=== PATIENT | male | born 1960 | race Caucasian/White ===

== ENCOUNTER 2017-10-30 10:34 | Inpatient (IN) | payer BC, SELFPAY ==
[2017-10-30] MEDS ORDERED: METOPROLOL TARTRATE 5 MG/5 ML INJ IV ONE (10:50)
[2017-10-30 10:57] LABS: Arterial Blood Carboxyhemoglob 0.1 % (0-1.5); Blood Gas Oxyhemoglobin 96.6 % (94-97)
--- NOTE | 2017-10-30 10:58 | ER ---
Nurse's Notes [facility] Name: Dionisio Lawson Age: 57 yrs Sex: Male : 1960 Arrival Date: 10/30/2017 Time: 10:38 Bed 2 Private MD: None, None Diagnosis: Subsequent ST elevation (STEMI) myocardial infarction of inferior wall;Altered mental status, unspecified;Respiratory failure, unspecified;Obesity, unspecified;Hypotension Presentation: 10/30 10:30 Presenting complaint: EMS states: pt found laying on floor at residence by family, sg police arrival toned for pt unresponsive with no pulse, OPA inserted, administered CPR initiated. pt family noted to be poor historians for pt, EMS report initial EKG rhythm of V-Fib and AED mode and a shock was administered, pt EKG showed 2 3 AVF STEMI, HR of 133 bpm, pt removed OPA, resp even labored but tolerated 02 via NC. Transition of care: patient was not received from another setting of care. Onset of symptoms was October 30, 2017. Initial Sepsis Screen: Does the patient meet any 2 criteria? No. Patient's initial sepsis screen is negative. Does the patient have a suspected source of infection? No. Patient's initial sepsis screen is negative. Care prior to arrival: Oral airway placed, CPR via thumper CLINICAL NEUROPSYCHOLOGIST by EMS IV initiated. 18 GA, in the right antecubital area. Activity prior to arrival: unresponsive. 10:30 Care prior to arrival: IV initiated. 20 GA, in the left antecubital area, Glucose sg check: 207 Oxygen administered. oral airway. 10:30 Risk Assessment: Do you want to hurt yourself or someone else? Other: unable to sg complete d/t pt status. 10:30 Note EMS reports 10-12 rounds of 30:1 CPR administered, ACLS performed by [facility], abrasion noted to sternum that is red. Care prior to arrival: Medication(s) given: Narcan 2 mg IVP at 1016, EPI IVP 1 dose at 1020. 10:30 Compressions began prior to arrival. sg 10:47 Method Of Arrival: EMS: [facility] sg 10:47 Acuity: BOLA 1 sg Triage Assessment: 10:32 General: Appears distressed, unkempt, well nourished, Behavior is unresponsive. Pain: sg Unable to use pain scale. Patient is unresponsive. Historical: - Allergies: 11:01 No Known Allergies; sg - Home Meds: 11: None [Active]; sg - PMHx: 11: Hypertension; Migraines; sg - PSHx: 11: None; sg - Immunization history:: Adult Immunizations unknown. - Social history:: Smoking status: unknown. - Family history:: not pertinent. - Ebola Screening: : Unable to complete screening because patient is unresponsive. Screenin:29 Abuse screen: Denies threats or abuse. Nutritional screening: No deficits noted. tw2 Tuberculosis screening: No symptoms or risk factors identified. Fall Risk None identified. Assessment: 10:30 CPR assessment: performed CLINICAL NEUROPSYCHOLOGIST with the use of the [facility] device per [facility]. sg Cardiac rhythm is Sinus Tach upon arrival to exam room 2. Cardiovascular: Pulses are palpable in right radial artery, left radial artery, left carotid pulse and right carotid pulse. 11:00 General: Appears in no apparent distress. Behavior is unresponsive. pt intubated. Pain: sv Unable to use pain scale. FLACC scale score is 0 out of 10. Neuro: Level of Consciousness is unresponsive, Oriented to none. Respiratory: Respiratory effort is even, unlabored, Respiratory pattern is regular, symmetrical. GI: Abdomen is round. : Doran in place to gravity drainage Urine is clear. Derm: Skin is normal. 11:25 Reassessment: Patient appears in no apparent distress at this time. No changes from sv previously documented assessment. Pt remains intubated. Vital Signs: 10:43 BP 140 / 81; Pulse 133; Resp 18 A; Temp 96.9(C); Pulse Ox 100% on R/A; Weight 113.4 kg; sg 10:50 BP 116 / 85; Pulse 101 MON; Resp 16 A; Pulse Ox 99% on 100% FiO2 ETT vent; sv 11:10 BP 79 / 64; Pulse 114; Resp 20; Pulse Ox 99% on ETT ambu; sv 11:19 BP 79 / 55; Pulse 101; Resp 19 A; Temp 97.8; Pulse Ox 99% on 100% FiO2 ETT vent; sg 11:25 sg 11:10 Dr Baumann informed. sv 11:25 pt non violent restraint ordered to protect airway, pt transported via stretcher with ammy Montalvo RN laborer powerhouse personell for procedure ED Course: 10:30 environmental monitoring technician on. Pulse ox on. NIBP on. sv 10:30 Initial lab(s) drawn, by ED staff, sent to lab. EKG done, by x ray service technician. reviewed by ammy Baumann MD. 10:30 Patient has correct armband on for positive identification. Placed in gown. Bed in low sg position. 10:30 Maintain EMS IV. Dressing intact. Site clean \T\ dry. Gauge \T\ site: 18G to the left and sv right AC. 10:38 Patient arrived in ED. bd 10:42 Assisted provider with intubation using 7.5 mm ETT via oral route. ET tube secured at sg 23cm at the teeth. Intubated by Alex Baumann MD Placement verified by CO2 detector w/ + color change, auscultating bilateral breath sounds, Patient tolerated well. Doran cath inserted, using sterile technique, 16 Fr., by sales architect, balloon inflated, to gravity drainage, urine specimen collected. Patient tolerated well. Maintain EMS IV. Dressing intact. Site clean \T\ dry. IV is patent, is intact. 10:45 Alex Baumann MD is Attending Physician. isabel 10:47 None, None is Private Physician. sg 10:50 Patient has correct armband on for positive identification. Bed in low position. sv 10:57 Triage completed. sg 10:58 Brigida Connell MD is Hospitalizing Provider. isabel 10:58 NGT: inserted 14 Fr. other oral route verified placement of air over stomach, verified sv return of gastric contents, Patient tolerated well. 11:01 Arm band placed on. sg 11:13 CT completed. Patient tolerated procedure well. Patient moved back from CT. vr 11:15 EKG done, by x ray service technician. reviewed by Alex Baumann MD Repeat EKG. at1 11:19 X-ray completed. Portable x-ray completed in exam room. Patient tolerated procedure mh1 well. 11:27 to laborer powerhouse. sg 11:28 Patient admitted, IV remains in place. intact. sg 11:44 Jenniffer Marina RN is Primary Nurse. sv Restraints: 11:25 Non-Violent Restraint: Order obtained. Initiated on October 30, 2017 at 11:25. sg Administered Medications: 10:38 Drug: Versed 6 mg {Note: medication administered by Jenniffer Marina RN.} Route: IVP; sg Site: right antecubital; 10:40 Drug: NS 0.9% 1000 ml {Note: EMS IV bolus infused.} Route: IV; Rate: 1 bolus; Site: sg right antecubital; 10:40 Drug: Succinylcholine 120 mg {Note: medication administered by Jenniffer Marina RN.} sg Route: IVP; Site: right antecubital; 10:41 Drug: Etomidate 20 mg Route: IVP; Site: right antecubital; sg 10:48 Drug: Lopressor 2.5 mg {Note: medication administered by Jenniffer Marina RN.} Route: sg IVP; Site: right antecubital; 10:58 Drug: Versed 4 mg Route: IVP; Site: left antecubital; sg 10:58 Drug: Rocuronium 60 mg Route: IVP; Site: left antecubital; sg 11:00 Drug: NS 0.9% 1000 ml Route: IV; Rate: 1 bolus; Site: right antecubital; sg 11:16 Drug: Heparin (AL-Bolus No thrombolytic) - HEParin 60 units/kg {Co-Signature: tw2 (Traci Rivera RN).} Route: IVP; Site: left antecubital; 11:17 Drug: Heparin (AL Drip) 12 units/kg/hr - (HEParin 77451 units, D5W 500 ml) sg {Co-Signature: sv (Jenniffer Marina RN).} Route: IV; Rate: calculated rate; Site: left antecubital; 11:24 Not Given (Duplicate Order): Propofol 5 mcg/kg/min IV at calculated rate continuous; isabel titrate per protocol (titrate by 5-10mcg/kg/min every 10 min to max rate of 50 mcg/kg/min) 11:36 Not Given (Other Intervention Used): Lopressor 5 mg IVP once; Hold for SBP <100 or HR sg <60. 11:37 Not Given (pt transferred to skilled labor ): NS 0.9% 1000 ml IV at 1 bolus Per protocol; sg 1000 mL bolus 11:37 Not Given (Other Intervention Used): Aspirin Suppository 300 mg HI once sg Outcome: 10:58 Decision to Hospitalize by Provider. isabel 11:27 Outcome see nurses note tw2 11:27 Admitted to [facility] accompanied by nurse, on monitor, with chart, Report called to Carmen 11:27 Condition: stable 11:38 Patient left the ED. tw2 Signatures: Corazon Wang, Jenniffer, RN RN Abhishek Field RN RN Alex Baumann MD MD cha Harvey, Barb 1 Mihir, Fadia Saxena, imaging account manager EKG Tat1 Traci Rivera RN RN tw2 Jenniffer Marina RN Traci Rivera RN tw2 Corrections: (The following items were deleted from the chart) 10:47 Presenting complaint: EMS states: pt found laying on floor at residence by sg family, police arrival toned for pt unresponsive with no pulse, OPA inserted, administered CPR initiated. pt family noted to be poor historians for pt, EMS report initial EKG rhythm of V-Fib and AED mode and a shock was administered, pt EKG showed 2 3 AVF STEMI, HR of 133 bpm, pt removed OPA, resp even labored but tolerated 02 via NC 10:47 Transition of care: patient was not received from another setting of care. [facility] 10:47 Onset of symptoms was October 30, 2017 [facility] 10:47 Risk Assessment: Do you want to hurt yourself or someone else? Patient reports no sg desire to harm self or others. 10:47 Initial Sepsis Screen: Does the patient meet any 2 criteria? No. Patient's sg initial sepsis screen is negative. Does the patient have a suspected source of infection? No. Patient's initial sepsis screen is negative. 10:47 Care prior to arrival: Oral airway placed, CPR via thumper CLINICAL NEUROPSYCHOLOGIST by EMS IV sg initiated. 18 GA, in the right antecubital area, sg 10:47 Care prior to arrival: IV initiated. 20 GA, in the left antecubital area, Glucose sg check: 207 Oxygen administered. oral airway 10:47 Activity prior to arrival: unresponsive, [facility] 11:15 11:02 NS 0.9% 1000 ml IV at 1 bolus in right antecubital sg 11:22 10:40 Succinylcholine 120 mg IVP in right antecubital sg sg 11:49 11:00 BP 116 / 85; Pulse 101bpm; MonitorResp 16bpm; Assisted; Pulse Ox 99% FiO2 100% sv vent; sg 11:56 11:55 Patient left the ED. sv sv
--- NOTE | 2017-10-30 10:58 | EDPHYS ---
Physician Documentation [facility] Name: Dionisio Lawson Age: 57 yrs Sex: Male : 1960 Arrival Date: 10/30/2017 Time: 10:38 Bed 2 Private MD: None, None ED Physician Alex Baumann HPI: 10/30 10:48 This 57 yrs old Male presents to ER via Unassigned with complaints of isabel Unresponsive. 10:48 The patient or guardian reports chest pain that is located primarily in the anterior isabel aspect of right upper chest, anterior aspect of left upper chest, right lateral anterior chest, left lateral anterior chest, right nipple, right breast and left breast. Onset: just prior to arrival. The patient presents with unresponsive. Onset: The symptoms/episode began/occurred just prior to arrival, this morning. Possible causes: drug use, seizure, ami. Seizure Hx: the patient has no previous seizure history, it is unknown whether or not the patient has a previous seizure history. Historical: - Allergies: 11:01 No Known Allergies; sg - Home Meds: 11:01 None [Active]; sg - PMHx: 11:01 Hypertension; Migraines; sg - PSHx: 11:01 None; sg - Immunization history:: Adult Immunizations unknown. - Social history:: Smoking status: unknown. - Family history:: not pertinent. - Ebola Screening: : Unable to complete screening because patient is unresponsive. ROS: 10:48 Unable to obtain ROS due to obtunded state, patient distress. isabel Exam: 10:48 Neck: Trachea midline, no thyromegaly or masses palpated, and no cervical isabel lymphadenopathy. Supple, full range of motion without nuchal rigidity, or vertebral point tenderness. No Meningismus. Back: No spinal tenderness. No costovertebral tenderness. Full range of motion. MS/ Extremity: Pulses equal, no cyanosis. Neurovascular intact. Full, normal range of motion. 10:48 Eyes: Periorbital structures: appear normal, Pupils: equal, round, and reactive to light and accomodation, Extraocular movements: intact throughout, Conjunctiva: normal, Corneas: are normal, Sclera: no appreciated abnormality, Lids and lashes: appear normal, no acute changes. 10:48 Chest/axilla: Inspection: abrasion, ecchymosis, that is mild, of the mid-sternal area 10:48 Cardiovascular: Rate: tachycardic, Rhythm: regular, Pulses: Pulses are 4+ in bilateral radial, brachial, femoral, popliteal, posterior tibial and and dorsalis pedis arteries.. Heart sounds: normal, Edema: is not appreciated. 10:48 Respiratory: mild respiratory distress is noted. 10:48 Abdomen/GI: Inspection: distension, Bowel sounds: diminished, Palpation: nontender, Liver: no appreciated palpable abnormalities, Hernia: not appreciated. Vital Signs: 10:43 BP 140 / 81; Pulse 133; Resp 18 A; Temp 96.9(C); Pulse Ox 100% on R/A; Weight 113.4 kg; sg 10:50 BP 116 / 85; Pulse 101 MON; Resp 16 A; Pulse Ox 99% on 100% FiO2 ETT vent; sv 11:10 BP 79 / 64; Pulse 114; Resp 20; Pulse Ox 99% on ETT ambu; sv 11:19 BP 79 / 55; Pulse 101; Resp 19 A; Temp 97.8; Pulse Ox 99% on 100% FiO2 ETT vent; sg 11:25 sg 11:10 Dr Baumann informed. sv 11:25 pt non violent restraint ordered to protect airway, pt transported via stretcher with ammy Montalvo RN excavation laborer personell for procedure Procedures: 11:25 Intubation: Ventilated with 100% NRB prior to procedure. Intubated orally using # 3 isabel Syeda blade with 7.5 mm ETT. was successful on first attempt. Ventilated with Ambu bag. Cricoid pressure applied during procedure. Placement verified by CXR, CO2 detector with (+) color change, auscultating bilateral breath sounds, O2 saturation after procedure was 100 %. Patient tolerated well. MDM: 10:45 Patient medically screened. [facility] 10:51 Data reviewed: vital signs, nurses notes, lab test result(s), EKG, radiologic studies, [facility] CT scan, plain films. 10/30 10:47 Order name: Basic Metabolic Panel [facility] 10/30 10:47 Order name: CBC with Diff; Complete Time: 11:24 [facility] 10/30 10:47 Order name: Ckmb [facility] 10/30 10:47 Order name: CPK [facility] 10/30 10:47 Order name: LFT's [facility] 10/30 10:47 Order name: Magnesium [facility] 10/30 10:47 Order name: NT PRO-BNP [facility] 10/30 10:47 Order name: PT-INR; Complete Time: 11:24 [facility] 10/30 10:47 Order name: Ptt, Activated; Complete Time: 11:24 [facility] 10/30 10:47 Order name: Troponin (emerg Dept Use Only) [facility] 10/30 10:47 Order name: Lipase [facility] 10/30 10:47 Order name: Acetaminophen [facility] 10/30 10:47 Order name: ETOH Level; Complete Time: 11:24 [facility] 10/30 10:47 Order name: Salicylate [facility] 10/30 10:47 Order name: XRAY Chest (1 view) [facility] 10/30 10:47 Order name: Urine Drug Screen [facility] 10/30 10:47 Order name: CT Head Brain wo Cont [facility] 10/30 10:47 Order name: ABG [facility] 10/30 11:29 Order name: RAD EDTN 10/30 11:31 Order name: CT [facility] 10/30 10:47 Order name: EKG; Complete Time: 10:48 [facility] 10/30 10:47 Order name: Cardiac monitoring; Complete Time: 11:36 [facility] 10/30 10:47 Order name: EKG - Nurse/Tech; Complete Time: 11:36 [facility] 10/30 10:47 Order name: IV Saline Lock; Complete Time: 11:36 [facility] 10/30 10:47 Order name: Labs collected and sent; Complete Time: 11:36 [facility] 10/30 10:47 Order name: O2 Per Protocol; Complete Time: 11:36 [facility] 10/30 10:47 Order name: O2 Sat Monitoring; Complete Time: 11:36 [facility] 10/30 11:03 Order name: CONS Physician Consult [facility] 10/30 11:24 Order name: Doran; Complete Time: 11:27 [facility] 10/30 11:28 Order name: Restraint:Non-Violent; Complete Time: 11:28 sg Administered Medications: 10:38 Drug: Versed 6 mg {Note: medication administered by Jenniffer Marina RN.} Route: IVP; sg Site: right antecubital; 10:40 Drug: NS 0.9% 1000 ml {Note: EMS IV bolus infused.} Route: IV; Rate: 1 bolus; Site: sg right antecubital; 10:40 Drug: Succinylcholine 120 mg {Note: medication administered by Jenniffer Marina RN.} sg Route: IVP; Site: right antecubital; 10:41 Drug: Etomidate 20 mg Route: IVP; Site: right antecubital; sg 10:48 Drug: Lopressor 2.5 mg {Note: medication administered by Jenniffer Marina RN.} Route: sg IVP; Site: right antecubital; 10:58 Drug: Versed 4 mg Route: IVP; Site: left antecubital; sg 10:58 Drug: Rocuronium 60 mg Route: IVP; Site: left antecubital; sg 11:00 Drug: NS 0.9% 1000 ml Route: IV; Rate: 1 bolus; Site: right antecubital; sg 11:16 Drug: Heparin (MD-Bolus No thrombolytic) - HEParin 60 units/kg {Co-Signature: tw2 (Traci Rivera RN).} Route: IVP; Site: left antecubital; 11:17 Drug: Heparin (MD Drip) 12 units/kg/hr - (HEParin 29559 units, D5W 500 ml) sg {Co-Signature: sv (Jenniffer Marina RN).} Route: IV; Rate: calculated rate; Site: left antecubital; 11:24 Not Given (Duplicate Order): Propofol 5 mcg/kg/min IV at calculated rate continuous; isabel titrate per protocol (titrate by 5-10mcg/kg/min every 10 min to max rate of 50 mcg/kg/min) 11:36 Not Given (Other Intervention Used): Lopressor 5 mg IVP once; Hold for SBP <100 or HR sg <60. 11:37 Not Given (pt transferred to equipment operator/laborer ): NS 0.9% 1000 ml IV at 1 bolus Per protocol; sg 1000 mL bolus 11:37 Not Given (Other Intervention Used): Aspirin Suppository 300 mg NM once sg Disposition: 18 10:58 Hospitalization ordered by Brigida Connell for Inpatient Admission. Preliminary diagnosis are Subsequent ST elevation (STEMI) myocardial infarction of inferior wall, Altered mental status, unspecified, Respiratory failure, unspecified, Obesity, unspecified, Hypotension. - Bed requested for Intensive Care Unit. - Status is Inpatient Admission. sv - Condition is Critical. - Problem is new. - Symptoms are unchanged. UTI on Admission? No Signatures: Dispatcher [employer] EDMS DirriCorazon lao Stephanie, RN RN Abhishek Field RN RN Alex Baumann MD MD cha Wise, Tara, RN RN tw2 Jenniffer Marina RN Traci Rivera RN tw2 Corrections: (The following items were deleted from the chart) 10:58 10:58 Hospitalization Ordered by for Inpatient Admission. Preliminary diagnosis is isabel Subsequent ST elevation (STEMI) myocardial infarction of inferior wall; Altered mental status, unspecified. Bed requested for Marketing Intelligence Manager. Status is Inpatient Admission. Condition is Critical. Problem is new. Symptoms are unchanged. UTI on Admission? No. isabel 11:24 10:58 10/30/2017 10:58 Hospitalization Ordered by Brigida Connell MD for Inpatient isabel Admission. Preliminary diagnosis is Subsequent ST elevation (STEMI) myocardial infarction of inferior wall; Altered mental status, unspecified; Respiratory failure, unspecified; Obesity, unspecified. Bed requested for Marketing Intelligence Manager. Status is Inpatient Admission. Condition is Critical. Problem is new. Symptoms are unchanged. UTI on Admission? No. isabel 11:38 11:24 10/30/2017 10:58 Hospitalization Ordered by Brigida Connell MD for Inpatient tw2 Admission. Preliminary diagnosis is Subsequent ST elevation (STEMI) myocardial infarction of inferior wall; Altered mental status, unspecified; Respiratory failure, unspecified; Obesity, unspecified; Hypotension. Bed requested for Marketing Intelligence Manager. Status is Inpatient Admission. Condition is Critical. Problem is new. Symptoms are unchanged. UTI on Admission? No. isabel 11:55 11:38 10/30/2017 10:58 Hospitalization Ordered by Brigida Connell MD for Inpatient bd Admission. Preliminary diagnosis is Subsequent ST elevation (STEMI) myocardial infarction of inferior wall; Altered mental status, unspecified; Respiratory failure, unspecified; Obesity, unspecified; Hypotension. Bed requested for Marketing Intelligence Manager. Status is Inpatient Admission. Condition is Critical. Problem is new. Symptoms are unchanged. UTI on Admission? No. tw2 11:55 11:55 10/30/2017 10:58 Hospitalization Ordered by Brigida Connell MD for Inpatient sv Admission. Preliminary diagnosis is Subsequent ST elevation (STEMI) myocardial infarction of inferior wall; Altered mental status, unspecified; Respiratory failure, unspecified; Obesity, unspecified; Hypotension. Bed requested for Intensive Care Unit. Status is Inpatient Admission. Condition is Critical. Problem is new. Symptoms are unchanged. UTI on Admission? No. bd
[2017-10-30] MEDS ORDERED: PROPOFOL 1,000 MG/100 ML VIAL IV ONE (10:59)
[2017-10-30] MEDS ORDERED: MIDAZOLAM HCL 2 MG/2 ML INJ ONE ×3 (10:59→12:45)
[2017-10-30] MEDS ORDERED: NA CHLORIDE 0.9% 1,000 ML ONE ×2 (11:04→11:24)
[2017-10-30 11:08] LABS: Absolute Lymphocytes (CBC) 4.1 K/uL (0.7-4.9); Absolute Monocytes 1.3 K/uL (0.1-1.3); Absolute Neutrophil 9.5 K/uL (1.8-8.0); Basophils % 0.7 % (0-1.3); Hematocrit 45.7 % (39.6-49.0); MCH 28.6 pg (27.0-35.0); MCV 88.2 fL (80-100); MPV 9.7 fL (7.6-11.3); Monocytes % 8.7 % (3.3-12.3); RBC Red Blood Cell Count 5.18 M/uL (4.33-5.43)
[2017-10-30] MEDS ORDERED: HEPA 1000U/500MLS 1,000 UNIT/500 ML BAG IV ONE (11:10)
[2017-10-30 11:11] LABS: Protime INR 1.03
[2017-10-30] MEDS ORDERED: NA CHLORIDE 0.9% 50 ML ONE (11:11)
[2017-10-30] MEDS ORDERED: ATROPINE SULF 1 MG/10 ML SYR IV ONE (11:11)
[2017-10-30] MEDS ORDERED: ASPIRIN 600 MG/SUPP PR ONE (11:17)
[2017-10-30] MEDS ORDERED: HEPARIN 5000 UNIT/ML 1 ML VIAL ONE (11:17)
[2017-10-30] MEDS ORDERED: DOPAMINE/D5W 0 MG/0 ML BAG IV ONE (11:18)
[2017-10-30] MEDS ORDERED: HEPARIN/D5W 25,000 UNIT/500 ML BAG IV ONE (11:18)
--- NOTE | 2017-10-30 11:28 | EKG ---
Test Date: 2017-10-30 Test Time: 10:40:44 Pet Technologist: ABEL MEASUREMENT RESULTS: Intervals: Rate: 123 GA: 140 QRSD: 92 QT: 314 QTc: 449 [place]: P: 32 GA: 140 QRS: 70 T: 41 INTERPRETIVE STATEMENTS: Sinus tachycardia ST elevation, consider inferior injury or acute infarct ACUTE ND / STEMI Consider right ventricular involvement in acute inferior infarct Abnormal ECG Compared to ECG 07/12/2013 09:09:08 ST (T wave) deviation now present Myocardial infarct finding now present Myocardial infarct finding now present Sinus rhythm no longer present Electronically Signed On 10-30-17 11:27:59 CDT by Michele Morrison
--- NOTE | 2017-10-30 11:28 | RAD REPORT ---
EXAM DESCRIPTION: RAD - Chest Single View - 10/30/2017 11:22 am CLINICAL HISTORY: CHEST PAIN Chest pain. COMPARISON: CHEST SINGLE VIEW dated 07/12/2013; CHEST PA AND LAT 2 VIEW dated 09/02/2010 FINDINGS: Portable technique limits examination quality. The tip of the ET tube is above the tarah. Enteric tube descends in the stomach. The lungs are gross ly clear. Cardiac size is mildly prominent. No displaced fractures.
--- NOTE | 2017-10-30 11:31 | RAD REPORT ---
EXAM DESCRIPTION: CT - Head Brain Wo Cont - 10/30/2017 11:13 am CLINICAL HISTORY: Dizziness;Syncope;Mental status change Drowsiness COMPARISON: No comparisons TECHNIQUE: All CT scans are performed using dose optimization technique as appropriate and may inclu de automated exposure control or mA/KV adjustment according to patient size. FINDINGS: No intracranial hemorrhage, hydrocephalus or extra-axial fluid collection.No areas of brai n edema or evidence of midline shift. The paranasal sinuses and mastoids are clear except for mild opacification of left ethmoid air cells. . The calvarium is intact. IMPRESSION: No acute intracranial abnormality.
[2017-10-30] MEDS ORDERED: MIDAZOLAM HCL 5 MG/5 ML INJ ONE (11:34)
[2017-10-30] MEDS ORDERED: PROPOFOL 200 MG/20 ML VIAL IV ONE (11:37)
[2017-10-30] MEDS ORDERED: LIDOCAINE 1% MPF 5 ML VIAL ONE (11:37)
[2017-10-30 11:46] LABS: ALT/SGPT 106 U/L (12-78); AST/SGOT 77 U/L (15-37); Alkaline Phosphatase 68 U/L (45-117); BUN Blood Urea Nitrogen 21 mg/dL (7-18); Bicarbonate 17 mmol/L (21-32); Bilirubin Direct 0.2 mg/dL (0-0.2); Bilirubin Total 0.7 mg/dL (0.2-1.0); CKMB Creatine Kinase MB 1.4 ng/mL (0.3-3.6); Creatine Phosphokinase 140 U/L (39-308); Glucose Level 268 mg/dL (74-106); Lipase 125 U/L (73-393); Magnesium 2.4 mg/dL (1.8-2.4); NT PRO-BNP 46 pg/mL (<125); Potassium 3.6 mmol/L (3.5-5.1); Protein, Total 7.7 g/dL (6.4-8.2); Sodium Level 137 mmol/L (136-145)
[2017-10-30] MEDS ORDERED: DOPAMINE/D5W 400 MG/250 ML BAG IV ONE (11:51)
[2017-10-30] MEDS ORDERED: PRASUGREL (EFFIENT) 10 MG TAB ONE (12:11)
--- NOTE | 2017-10-30 12:13 | EKG ---
Test Date: 2017-10-30 Test Time: 10:49:09 Algorithm Design Engineer: ABEL MEASUREMENT RESULTS: Intervals: Rate: 102 CA: 152 QRSD: 94 QT: 344 QTc: 448 [place]: P: 31 CA: 152 QRS: 65 T: 71 INTERPRETIVE STATEMENTS: Sinus tachycardia ST elevation, consider inferior injury or acute infarct ACUTE IL / STEMI Consider right ventricular involvement in acute inferior infarct Abnormal ECG Compared to ECG 10/30/2017 10:40:44 No significant changes Electronically Signed On 10-30-17 12:11:54 CDT by Michele Morrison
[2017-10-30] MEDS ORDERED: DOPAMINE/D5W 400 MG/250 ML BAG IV PRN (12:28)
[2017-10-30] MEDS ORDERED: FENTANYL CITR 100 MCG/2 ML ONE (12:30)
[2017-10-30] MEDS ORDERED: ASPIRIN 81 MG CHEWABLE TABLET ONE (12:33)
[2017-10-30] MEDS ORDERED: ONDANSETRON 4 MG/2 ML VIAL IV PRN (12:48)
[2017-10-30] MEDS: NA CHLORIDE 0.9% 1,000 ML IV SCH (12:48)
[2017-10-30] MEDS ORDERED: NA CHLORIDE 0.9% 250 ML IV PRN (12:50)
[2017-10-30] MEDS ORDERED: MIDAZOLAM HCL 2 MG/2 ML INJ IV PRN (12:50)
[2017-10-30] MEDS ORDERED: PROPOFOL 1,000 MG/100 ML VIAL IV PRN (12:50)
[2017-10-30] MEDS ORDERED: HALOPERIDOL LACT 5 MG/ML INJ IV PRN (12:50)
[2017-10-30] MEDS: LORazepam 2 MG/ML VIAL IV PRN ×2 (13:08→16:50)
[2017-10-30] MEDS: FENTANYL CITR 100 MCG/2 ML IV PRN ×2 (13:29→23:41)
[2017-10-30 14:34] LABS: Urine Appearance CLEAR; Urine Bilirubin NEGATIVE (NEG); Urine Blood 2+ (NEG); Urine Color YELLOW; Urine Glucose NEGATIVE (NEG); Urine Protein 2+ (NEG); Urine Specific Gravity >=1.030 (1.005-1.030); Urine Urobilinogen 0.2 mg/dL (0.2-1.0); Urine pH 6.5 (5.0-7.0)
[2017-10-30 14:36] LABS: Urine Microscopic Reflex ORDER UMIC
--- NOTE | 2017-10-30 14:50 | ECHO ---
HEIGHT: ft in WEIGHT: 250 lb 0 oz DATE OF STUDY: 10/30/[address]: Michele Morrison MD 2-DIMENSIONAL: YES M.MODE: YES DOPPLER: YES COLOR FLOW: YES TDS: YES PORTABLE: NO DEFINITY: NO BUBBLE STUDY: NO DIAGNOSIS: CHEST PAIN CARDIAC HISTORY: CATHERIZATION: YES SURGERY: NO PROSTHETIC VALVE: NO PACEMAKER: NO MEASUREMENTS (cm) DIASTOLIC (NORMALS) SYSTOLIC (NORMALS) IVSd 1.1 (0.6-1.2) LA Diam 3.5 (1.9-4.0) LVEF 65% LVIDd 4.3 (3.5-5.7) LVIDs 2.8 (2.0-3.5) %FS 35% LVPWd 1.1 (0.6-1.2) Ao Diam 2.8 (2.0-3.7) 2 DIMENSIONAL ASSESSMENT: RIGHT ATRIUM: NORMAL LEFT ATRIUM: NORMAL RIGHT VENTRICLE: NORMAL LEFT VENTRICLE: NORMAL TRICUSPID VALVE: NORMAL MITRAL VALVE: NORMAL PULMONIC VALVE: NORMAL AORTIC VALVE: NORMAL PERICARDIAL EFFUSION: NONE AORTIC ROOT: NORMAL LEFT VENTRICULAR WALL MOTION: NORMAL DOPPLER/COLOR FLOW: NORMAL COMMENTS: NORMAL 2D ECHOCARDIOGRAM WITH DOPPLER. TECHNOLOGIST: Shakira MATHUR
[2017-10-30 14:55] LABS: Urine Bacteria <20 /HPF (NONE SEEN)
[2017-10-30 14:56] LABS: Urine Amorphous Sediment 1+ /HPF (NONE SEEN); Urine Culture Reflex Order NOT NEEDED
--- NOTE | 2017-10-30 15:19 | P.HP ---
Certification for Inpatient Patient admitted to: Inpatient With expected LOS: >2 Midnights Patient will require the following post-hospital care: None Practitioner: I am a practitioner with admitting privileges, knowledge of patient current condition, hospital course, and medical plan of care. Services: Services provided to patient in accordance with Admission requirements found in Title 42 Section 412.3 of the Code of Federal Regulations Patient History Date of Service: 10/30/17 Primary Care Provider: Dr Alba Reason for admission: CPA History of Present Illness: This is a 57-year-old male with significant past medical history of hypertension and migraines who was brought over to the ED by EMS after being found unresponsive at the house. Patient was reported to be found laying on the floor by the family and the family called 911. When EMS arrived patient had no pulse and CPR was initiated. Initial rhythm was VFib and ED was started along with shock with administer and patient received 1 round of epinephrine as well. Patient then was brought over to the hospital for further care. In the ER patient had an EKG done which was consistent with STEMI on AVF and AVR. Heart rate of 133. Code STEMI was called and patient was taken to the bean sprout laborer by the pharmacy data analyst. Upon questioning the family at bedside who appears to be a poor historian for the patient stated the patient has had some chest pain that he was complaining about past couple a days and got progressively worse today. No other information has been able to be collected by the family member and patient is currently intubated and sedated. Allergies No Known Allergies Allergy (Unverified 10/30/17 11:41) Home medications list reviewed: Yes Home Medications: Hydrocodone 5/APAP 325 [[place] 5/325*] 1 tab PO BID 10/30/17 Hydromorphone HCl [Dilaudid] 4 mg PO BID 10/30/17 Lisinopril 20 mg PO DAILY 10/30/17 Lovastatin 40 mg PO DAILY 10/30/17 diazePAM [Diazepam] 5 mg PO BID 10/30/17 - Past Medical/Surgical History Has patient received pneumonia vaccine in the past: No Diabetic: No -: hyperlipdemia -: htn -: headaches Past Surgical History: Reviewed- Non-Contributory - Family History Family History: Reviewed- Non-Contributory - Social History Smoking Status: Current every day smoker Smoking therapy provided: No Patient receptive to therapy: No Alcohol use: No CD- Drugs: Yes Caffeine use: Yes Place of Residence: Home Review of Systems 10-point ROS is otherwise unremarkable Physical Examination - Vital Signs Temperature: 96.8 F Blood Pressure: 101/58 Pulse: 97 Respirations: 19 Pulse Ox (%): 100 - Physical Exam General: Other (Intubated and sedated. Moaning and groaning) HEENT: Atraumatic Neck: Supple, JVD distended Respiratory: Normal air movement, Crackles/rales, Rhonchi/gurgles Cardiovascular: Regular rate/rhythm, Normal S1 S2 Gastrointestinal: Normal bowel sounds, Soft and benign, Non-distended, No tenderness Musculoskeletal: No tenderness, Swelling Integumentary: Other (Mid Sternal Rash noted ) Lymphatics: No axilla or inguinal lymphadenopathy - Studies Laboratory Data (last 24 hrs) 10/30/17 10:35: PT 12.1, INR 1.03, APTT 32.7 10/30/17 10:35: WBC 15.3 H, Hgb 14.8, Hct 45.7, Plt Count 309 10/30/17 10:35: Sodium 137, Potassium 3.6, BUN 21 H, Creatinine 1.90 H, Glucose 268 H, Magnesium 2.4, Total Bilirubin 0.7, AST 77 H, ALT 106 H, Alkaline Phosphatase 68, Lipase 125 Assessment and Plan - Problems (Diagnosis) (1) Cardiopulmonary arrest with successful resuscitation Current Visit: Yes Status: Acute Plan: S/p Cardiopulmonry Arrest. 2.2 to STEMI -S/P CPR and Shock. Initial Rhythm Vfib. -Currently Intubated and sedated. -Being taken to the chemical lab supervisor -Cardiology consulted. -Pulmonology consulted. -Admit to ICU for close monitoring. (2) STEMI (ST elevation myocardial infarction) Current Visit: Yes Status: Acute Plan: EKG with AVF and AVR elevation. Possible RCA lesion -Being taken to the bean sprout laborer now -ASA, BB, Statin, effient and Fluids -If needed will start Dopamine for BP -ECHO pending as well Qualifiers: Involved coronary artery: right coronary artery Qualified Code(s): I21.11 - ST elevation (STEMI) myocardial infarction involving right coronary artery (3) HTN (hypertension) Current Visit: Yes Status: Chronic Plan: Currently Hypotensive Qualifiers: Hypertension type: essential hypertension Qualified Code(s): I10 - Essential (primary) hypertension (4) Combined hyperlipidemia Current Visit: Yes Status: Chronic Plan: On Statin at this time (5) Obesity (BMI 30-39.9) Current Visit: Yes Status: Chronic Discharge Plan: Other Plan to discharge in: 72 Hours - Advance Directives Does patient have a Living Will: Yes Does patient have a Durable POA for Healthcare: Yes - Code Status/Comfort Care Code Status Assessed: Yes Code Status: Full Code Critical Care: Yes
[2017-10-30] MEDS ORDERED: ETOMIDATE 20 MG/10 ML VIAL IV ONE (16:47)
[2017-10-30] MEDS ORDERED: SUCCINYLCHOLINE 20 MG/ML (10 ML) IV ONE (16:47)
--- NOTE | 2017-10-30 16:58 | CON ---
Attending Physician: Dr. Baumann. Chief Complaint: Cardiac arrest. History Of Present Illness: Mr. Trinh was in his usual state of health. He uses a lot of narcoti c prescription medications to treat headaches. He was at home. He was unobserved for just a matter of 1 or 2 minutes, but between one observation in the next he had a cardiac arrest. He was found gur gling. The inspector of weights and measures found him in ventricular fibrillation, defibrillated him. He did not wake up very m uch. He received Narcan and then seemed to be while awake he was in sinus tachycardia. First EKG sh ows some ST elevation in the inferior leads. He has had a CAT scan of the head that does not show an y GREENHOUSE LABORER hemorrhage. We do not think he is having a stroke. We think he had a cardiac arrest and proba taisha from occlusion of the right coronary. He will be brought to the cardiac [facility] laboratory on an emergency basis to undergo STEMI protocol. His CAT scan according to my interpretation does not show a mass o r hemorrhage or any evidence of trauma. Physical Examination: On physical exam, he is comatose. He has received lots of sedatives. He is intubated. He has a blo od pressure in the 80s and 90s according to the blood pressure cuff, but his pulses would make me thi nk it is more like 100. He has received succinylcholine, etomidate and Versed, all of which probably contributed to the low blood pressure. His EKG would not suggest that he has a severe cardiomyopath y or depressed ejection fraction and rather than waiting for an echocardiogram, we will support his b lood pressure with fluids, taken quickly to the cardiac [facility] laboratory to see if there is any anatomical pr oblem with his coronary arteries that we can fix. Thank you very much for your kind referral of Mr. Trinh. I will follow him with you. MORGAN/HAMMAD Voice ID: [id number] Report ID: [id number]
[2017-10-30] MEDS ORDERED: HALOPERIDOL LACT 5 MG/ML INJ IM STA (17:00)
[2017-10-30] MEDS ORDERED: WATER FOR INJ,STERILE 10 ML IM PRN (17:24)
[2017-10-30] MEDS ORDERED: HALOPERIDOL LACT 5 MG/ML INJ IV STA (17:25)
[2017-10-30] MEDS ORDERED: ZIPRASIDONE MESYLA 20 MG/VIAL IM ONE (18:00)
[2017-10-30] MEDS: ATORVASTATIN 80 MG TAB PO SCH (20:43)
[2017-10-30] MEDS: FAMOTIDINE 20 MG/2 ML VIAL IV SCH (20:43)
[2017-10-30 22:14] LABS: Barbiturates NEGATIVE (NEGATIVE); Benzodiazepines POSITIVE (NEGATIVE); Cocaine NEGATIVE (NEGATIVE); METHAMPHETAM NEGATIVE (NEGATIVE); Methadone NEGATIVE (NEGATIVE); Opiates NEGATIVE (NEGATIVE); Phencyclidine NEGATIVE (NEGATIVE); THC Cannibis NEGATIVE (NEGATIVE)
--- NOTE | 2017-10-30 23:07 | OP ---
Surgeon: Michele Morrison MD Procedures: Left heart catheterization, coronary angiography, percutaneous coronary intervention, st ent of a 99% right coronary artery stenosis. Findings: The patient's left coronary is free of any significant disease. We did not do an LV angio gram. Echocardiogram will be done in its place. The RCA was 99% stenosed. GILBERT grade-1 flow after the balloon and stent with a 3.5 x 16 Synergy. The percent stenosis was 0, GILBERT grade flow of 3. He remained in sinus rhythm, sinus tachycardia the whole case. He was mildly hypotensive throughout mo st of the case. Procedure In Detail: The patient was intubated, comatose after cardiac arrest, brought to the [facility] catheterization lab because of the ST elevation SC, inferior leads. Right femoral approach was use d, prepared and draped in usual sterile fashion. He received propofol by the anesthesiologist; 1% li docaine was used to anesthetize the skin. The right femoral artery was entered using an 18-gauge nee dle, modified Seldinger technique, 6-Vietnamese sheath. Coronary angiogram of the right with a 3DRC, lef t with a JL4. We switched to a 3DRC guide, wired the lesion with a Benson wire, and pre-dilated with a 3-0 x 15 Emerge. We withdrew the balloon, left the wire across, and placed a Synergy 3.5 x 16 anisha nt across the lesion, inflated to 10 atmospheres. We inflated the second time with the balloon moved a millimeter or so proximally, withdrew the balloon, took pictures with the wire in place, withdrew the wire. Angiographic result was excellent; 0% residual stenosis. ST-elevation resolved. Estimated Blood Loss: 20 cc. It Infrastructure Engineer: Johnna Wheeler. Complications: The only complication during the procedure was hypotension, which was present before, probably from right ventricular involvement and his acute inferior SC. SH/MODL Voice ID: [id number] Report ID: [id number]
[2017-10-31] MEDS: NA CHLORIDE 0.9% 1,000 ML IV SCH ×3 (03:00→17:36)
[2017-10-31 05:10] LABS: Absolute Lymphocytes (CBC) 1.7 K/uL (0.7-4.9); Absolute Monocytes 1.2 K/uL (0.1-1.3); Absolute Neutrophil 7.6 K/uL (1.8-8.0); Basophils % 0.3 % (0-1.3); Eosinophils % 0.1 % (0-4.4); Hematocrit 34.2 % (39.6-49.0); Lymphocytes % 16.3 % (15.3-44.8); MCH 29.4 pg (27.0-35.0); MCV 85.7 fL (80-100); MPV 8.9 fL (7.6-11.3); Monocytes % 10.9 % (3.3-12.3)
[2017-10-31 05:53] LABS: Albumin 3.1 g/dL (3.4-5.0); Bilirubin Total 0.9 mg/dL (0.2-1.0); CKMB Creatine Kinase MB 18.8 ng/mL (0.3-3.6); Magnesium 1.8 mg/dL (1.8-2.4); Potassium 4.3 mmol/L (3.5-5.1); Protein, Total 5.9 g/dL (6.4-8.2)
[2017-10-31] MEDS ORDERED: MAGNESIUM SULFATE 1 gm IVPB 1 GM/100 ML BAG IV ONE (06:00)
--- NOTE | 2017-10-31 08:38 | RAD REPORT ---
EXAM DESCRIPTION: RAD - Chest Single View - 10/31/2017 6:36 am CLINICAL HISTORY: intubation Chest pain. COMPARISON: Chest Single View dated 10/30/2017; CHEST SINGLE VIEW dated 07/12/2013; CHEST PA AND LAT 2 VIEW dated 09/02/2010 FINDINGS: Portable technique limits examination quality. Since yesterday's examination, the patient has been extubated. Enteric tube has also been removed. Th e lungs appear grossly clear. The heart is upper limit normal in size. No displaced fractures.
[2017-10-31] MEDS: FAMOTIDINE 20 MG/2 ML VIAL IV SCH (09:00)
--- NOTE | 2017-10-31 09:43 | P.PN ---
Subjective Date of Service: 10/31/17 Primary Care Provider: Dr Alba Chief Complaint: CPA Pt seen and examined at bedside. Chart reviewed. Case DW with Cardiology -Pt is now extubated and AAOX 3 -Weaned off the Dopamine -Overnight Did well overall. -C.O of having some chest pain on the left side. Overall feels better Review of Systems General: As per HPI Physical Examination - Vital Signs Temperature: 99.3 F Blood Pressure: 121/61 Pulse: 93 Respirations: 20 Pulse Ox (%): 97 - Physical Exam General: Alert, In no apparent distress HEENT: Atraumatic, PERRLA, EOMI Neck: Supple, JVD not distended Respiratory: Clear to auscultation bilaterally, Normal air movement Cardiovascular: Regular rate/rhythm, Normal S1 S2 Gastrointestinal: Normal bowel sounds, No tenderness Musculoskeletal: No tenderness Integumentary: No rashes Neurological: Normal speech, Normal tone, Normal affect Lymphatics: No axilla or inguinal lymphadenopathy - Studies Laboratory Data (last 24 hrs) 10/30/17 10:35: PT 12.1, INR 1.03, APTT 32.7 10/30/17 10:35: WBC 15.3 H, Hgb 14.8, Hct 45.7, Plt Count 309 10/30/17 10:35: Sodium 137, Potassium 3.6, BUN 21 H, Creatinine 1.90 H, Glucose 268 H, Magnesium 2.4, Total Bilirubin 0.7, AST 77 H, ALT 106 H, Alkaline Phosphatase 68, Lipase 125 Medications List Reviewed: Yes Assessment & Plan - Problems (Diagnosis) (1) Cardiopulmonary arrest with successful resuscitation Current Visit: Yes Status: Acute Plan: S/p Cardiopulmonry Arrest. 2.2 to STEMI. Now Resolved. -S/P CPR and Shock. Initial Rhythm Vfib. -Currently Extubated Now -S/P Cardiac Cath consistent with RCA lesion and stent placement -Cardiology consulted. Appreciate Reccs (2) STEMI (ST elevation myocardial infarction) Current Visit: Yes Status: Acute Plan: EKG with AVF and AVR elevation. Possible RCA lesion -S/p CAth with Stent Placement. RCA Stent placed -ASA, BB, Statin, effient -Cardiology consulted. Qualifiers: Involved coronary artery: right coronary artery Qualified Code(s): I21.11 - ST elevation (STEMI) myocardial infarction involving right coronary artery (3) HTN (hypertension) Current Visit: Yes Status: Chronic Plan: Restarted on Home medication Qualifiers: Hypertension type: essential hypertension Qualified Code(s): I10 - Essential (primary) hypertension (4) Combined hyperlipidemia Current Visit: Yes Status: Chronic Plan: On Statin at this time (5) Obesity (BMI 30-39.9) Current Visit: Yes Status: Chronic Discharge Plan: Home Plan to discharge in: 48 Hours - Code Status/Comfort Care Code Status Assessed: Yes Critical Care: Yes
[2017-10-31] MEDS: ASPIRIN EC 81 MG TAB PO SCH (09:45)
[2017-10-31] MEDS: PRASUGREL (EFFIENT) 10 MG TAB PO SCH (09:45)
[2017-10-31] MEDS ORDERED: FAMOTIDINE 20 MG TAB PO ONE (10:30)
--- NOTE | 2017-10-31 12:44 | EKG ---
Test Date: 2017-10-31 Test Time: 10:58:21 Financial Coach: ABEL MEASUREMENT RESULTS: Intervals: Rate: 96 WY: 132 QRSD: 88 QT: 352 QTc: 444 [place]: P: 35 WY: 132 QRS: 56 T: 70 INTERPRETIVE STATEMENTS: Normal sinus rhythm Nonspecific T wave abnormality Abnormal ECG Compared to ECG 10/30/2017 10:49:09 T-wave abnormality now present Sinus tachycardia no longer present ST (T wave) deviation no longer present Myocardial infarct finding no longer present Myocardial infarct finding no longer present Electronically Signed On 10-31-17 12:44:00 CDT by Trell Reddy
[2017-10-31] MEDS: METOPROLOL TAR 25 MG TAB PO SCH ×2 (14:07→20:50)
[2017-10-31] MEDS: ATORVASTATIN 80 MG TAB PO SCH (20:49)
[2017-10-31] MEDS: ACETAMINOPHEN 500 MG TAB PO PRN (20:50)
[2017-10-31] MEDS: FAMOTIDINE 20 MG TAB PO SCH (20:50)
[2017-11-01] MEDS ORDERED: DIAZEPAM 5 MG TABLET PO ONE (02:31)
[2017-11-01] MEDS: NA CHLORIDE 0.9% 1,000 ML IV SCH ×2 (03:03→13:04)
[2017-11-01] MEDS: ACETAMINOPHEN 500 MG TAB PO PRN ×3 (03:08→22:04)
[2017-11-01 04:40] LABS: Absolute Lymphocytes (CBC) 1.5 K/uL (0.7-4.9); Absolute Monocytes 1.2 K/uL (0.1-1.3); Absolute Neutrophil 7.5 K/uL (1.8-8.0); Basophils % 0.5 % (0-1.3); Eosinophils % 0.5 % (0-4.4); Lymphocytes % 14.2 % (15.3-44.8); MCH 29.2 pg (27.0-35.0); MCV 86.5 fL (80-100); Monocytes % 11.8 % (3.3-12.3); RBC Red Blood Cell Count 4.04 M/uL (4.33-5.43)
[2017-11-01 04:55] LABS: Albumin 3.3 g/dL (3.4-5.0); Bilirubin Total 1.6 mg/dL (0.2-1.0); Magnesium 2.1 mg/dL (1.8-2.4); Phosphorus 2.3 mg/dL (2.5-4.9); Potassium 3.9 mmol/L (3.5-5.1); Protein, Total 6.7 g/dL (6.4-8.2)
[2017-11-01] MEDS ORDERED: POTASSIUM 25 MEQ EFFERV TAB PO ONE (05:10)
[2017-11-01] MEDS: POTASS/SODIUM PHOSPHATE 1 PKT POWD.PACK PO SCH ×3 (06:20→09:16)
--- NOTE | 2017-11-01 06:38 | RAD REPORT ---
EXAM DESCRIPTION: RAD - Chest Single View - 11/01/2017 6:29 am CLINICAL HISTORY: Respiratory difficulty, intubation history provided COMPARISON: October 31 TECHNIQUE: AP portable chest image was obtained 0615 hours . FINDINGS: No endotracheal tube identified. Imaging extends as high as the C3 level. No new tube or l ine. No large mass or consolidation. Left costophrenic angle blunting is seen. Lateral left base is h azy, common in shallow inspiration portable imaging. Trachea is midline. Heart and vasculature are no rmal. No measurable pleural effusion and no pneumothorax. No gross bony abnormality seen. No acute ao rtic findings suspected. IMPRESSION: Shallow inspiration chest film without acute cardiopulmonary finding.
[2017-11-01] MEDS: FAMOTIDINE 20 MG TAB PO SCH ×2 (09:17→21:56)
[2017-11-01] MEDS: METOPROLOL TAR 25 MG TAB PO SCH ×2 (09:17→21:56)
[2017-11-01] MEDS: ASPIRIN EC 81 MG TAB PO SCH (09:18)
[2017-11-01] MEDS: PRASUGREL (EFFIENT) 10 MG TAB PO SCH (09:23)
--- NOTE | 2017-11-01 13:36 | P.PN ---
Subjective Date of Service: 11/01/17 Primary Care Provider: Dr Alba Chief Complaint: CPA Pt seen and examined at bedside. Chart reviewed. Case DW with Cardiology -Overnight Did well Overnight. But still c/o of not being able to sleep at night Review of Systems General: As per HPI Physical Examination - Vital Signs Temperature: 99.3 F Blood Pressure: 109/63 Pulse: 74 Respirations: 20 Pulse Ox (%): 99 - Physical Exam General: Alert, In no apparent distress, Oriented x3 HEENT: Atraumatic, PERRLA, EOMI Neck: Supple, JVD not distended Respiratory: Normal air movement, Crackles/rales Cardiovascular: Regular rate/rhythm, Normal S1 S2 Gastrointestinal: Normal bowel sounds, Soft and benign, Non-distended, No tenderness Musculoskeletal: No tenderness, Swelling Integumentary: No rashes Neurological: Normal speech, Normal tone, Normal affect Lymphatics: No axilla or inguinal lymphadenopathy - Studies Medications List Reviewed: Yes Assessment & Plan - Problems (Diagnosis) (1) Cardiopulmonary arrest with successful resuscitation Onset Date: 10/31/17 Current Visit: Yes Status: Acute Plan: S/p Cardiopulmonry Arrest. 2.2 to STEMI. Now Resolved. -S/P CPR and Shock. Initial Rhythm Vfib. -S/P Cardiac Cath consistent with RCA lesion and stent placement -Cardiology consulted. Appreciate Reccs (2) STEMI (ST elevation myocardial infarction) Onset Date: 10/31/17 Current Visit: Yes Status: Acute Plan: EKG with AVF and AVR elevation. Possible RCA lesion -S/p CAth with Stent Placement. RCA Stent placed -ASA, BB, Statin, effient -Cardiology consulted. Qualifiers: Involved coronary artery: right coronary artery Qualified Code(s): I21.11 - ST elevation (STEMI) myocardial infarction involving right coronary artery (3) HTN (hypertension) Onset Date: 10/31/17 Current Visit: Yes Status: Chronic Plan: Restarted on Home medication Qualifiers: Hypertension type: essential hypertension Qualified Code(s): I10 - Essential (primary) hypertension (4) Combined hyperlipidemia Onset Date: 10/31/17 Current Visit: Yes Status: Chronic Plan: On Statin at this time (5) Obesity (BMI 30-39.9) Onset Date: 10/31/17 Current Visit: Yes Status: Chronic Discharge Plan: Home Plan to discharge in: 48 Hours - Code Status/Comfort Care Code Status Assessed: Yes Critical Care: No
[2017-11-01] MEDS: ATORVASTATIN 80 MG TAB PO SCH (21:56)
--- NOTE | 2017-11-02 00:09 | PN ---
Date of Progress Note: 10/31/2017 Mr. Lawson had come in on 10/30/2017 with cardiac arrest, intubated and then extubated the same day after an emergency RCA stent. The patient overnight has done very well. He is awake, alert, and or iented x3. Maybe some short-term memory, but has no complaint. Had a short run of ventricular tachy cardia for about 6 beats. He is asymptomatic otherwise. I will start him on beta-blockers. He is a lready on aspirin, Effient. He is on statin. He can go to the floor later on today and may be disch arged tomorrow morning. We will see him in the office in 2 weeks. He will need close followup. He will need his carotids check down the road and maybe a AAA ultrasound as well considering his risk fa ctors. BRANDI/HAMMAD Voice ID: [id number] Report ID: [id number]
[2017-11-02] MEDS: NA CHLORIDE 0.9% 1,000 ML IV SCH ×2 (00:31→09:32)
[2017-11-02 04:20] LABS: Absolute Lymphocytes (CBC) 1.6 K/uL (0.7-4.9); Absolute Monocytes 1.1 K/uL (0.1-1.3); Absolute Neutrophil 6.4 K/uL (1.8-8.0); Basophils % 0.5 % (0-1.3); Eosinophils % 1.3 % (0-4.4); Hematocrit 33.4 % (39.6-49.0); Lymphocytes % 17.5 % (15.3-44.8); MCH 29.2 pg (27.0-35.0); MCV 85.2 fL (80-100); Monocytes % 11.8 % (3.3-12.3); RBC Red Blood Cell Count 3.92 M/uL (4.33-5.43)
[2017-11-02 04:35] LABS: ALT/SGPT 50 U/L (12-78); AST/SGOT 33 U/L (15-37); Albumin 3.1 g/dL (3.4-5.0); Alkaline Phosphatase 49 U/L (45-117); BUN Blood Urea Nitrogen 12 mg/dL (7-18); Bicarbonate 25 mmol/L (21-32); Bilirubin Total 1.2 mg/dL (0.2-1.0); Glucose Level 126 mg/dL (74-106); Phosphorus 2.6 mg/dL (2.5-4.9); Potassium 3.6 mmol/L (3.5-5.1); Protein, Total 6.4 g/dL (6.4-8.2); Sodium Level 140 mmol/L (136-145)
[2017-11-02] MEDS ORDERED: POTASSIUM CL SA 10 MEQ TAB PO ONE (04:48)
--- NOTE | 2017-11-02 09:22 | RAD REPORT ---
EXAM DESCRIPTION: RAD - Chest Single View - 11/02/2017 6:30 am CLINICAL HISTORY: intubation Chest pain. COMPARISON: Chest Single View dated 11/01/2017; Chest Single View dated 10/31/2017; Chest Single View dated 10/30/2017; CHEST SINGLE VIEW dated 07/12/2013 FINDINGS: Portable technique limits examination quality. The lungs are grossly clear. The heart is mildly enlarged in size. Small left pleural effusion suspec seven. No ETT is visualized on the radiograph.
[2017-11-02] MEDS: METOPROLOL TAR 25 MG TAB PO SCH (09:27)
[2017-11-02] MEDS: ASPIRIN EC 81 MG TAB PO SCH (09:27)
[2017-11-02] MEDS: PRASUGREL (EFFIENT) 10 MG TAB PO SCH (09:27)
[2017-11-02] MEDS: FAMOTIDINE 20 MG TAB PO SCH (09:27)
[2017-11-02] MEDS ORDERED: DIPHENHYDRAMINE 25 MG TAB/CAP PO PRN (10:42)
--- NOTE | 2017-11-03 06:35 | DS ---
Date of Discharge: 11/02/2017 Consultants: Trell Reddy M.D., and Michele Morrison M.D. with Cardiology. Procedures: On 10/30/2017, by Dr. Morrison, left heart catheterization, coronary angiography, percutan eous coronary intervention, and stent of a 99% right coronary artery stenosis. Admitting Diagnoses: 1.Xlh-PY-vdfyact elevation myocardial infarction. 2.Cardiopulmonary arrest with successful resuscitation. 3.Essential hypertension. 4.Combined hyperlipidemia. 5.Obesity, BMI 34. 6.Hypotension. Discharge Diagnoses: 1.Cardiopulmonary arrest, status post resuscitation. 2.St-elevation myocardial infarction with right coronary artery stent placed. 3.Essential hypertension. 4.Combined hyperlipidemia. 5.Obesity, BMI 34. 6.Osteoarthritis of the knee. Hospital Course: The patient is a 57-year-old male, who comes in with being unresponsive at the [facility]. The patient received a shock via EMS as his initial rhythm was VFib and 1 round of epinephrine. The patient was brought into the hospital. EKG showed ST-elevation CO. He was taken to the slab worker . The patient had to be intubated and was sedated at that time, received a stent in the RCA. His ec hocardiogram showed ejection fraction of 65%. He was started on chest pain guidelines and along with Effient, the patient did have some drop in his blood pressure; therefore, his home medications will be adjusted with lower dose of lisinopril and dose of beta gloria will also be decreased. He will b e on high-dose statin. CT scan of the head was also done due to the altered mental status, did not s how any acute bleed. The patient stated that he was unable to afford his Effient; therefore, he will be switched to Plavix upon discharge. The patient, otherwise, was doing well. His chest pain was r esolved. He was counseled to avoid any strenuous activity until seen by Cardiology as an outpatient followup. The patient was then discharged home in a stable condition. Activity: No strenuous activity. No driving or operating heavy machinery while on narcotics or kenyon odiazepines. Diet: Heart-healthy. Followup: Follow up with primary care physician in 2-3 days. Follow up with technical publications writer, Dr. Argelia marcano and Dr. Reddy in 2 weeks. Return to ER for worsening condition. Medications: As per medication reconciliation list. Total time spent discharging the patient was 37 minutes. Physical Examination: General: Awake, alert, oriented, and not in any acute distress, obese male. CV: S1, S2. No murmurs. Respiratory: Moving air well bilaterally. No wheezing. Gastrointestinal: Abdomen is soft, nontender, and nondistended. Positive bowel sounds. Extremities: No clubbing, cyanosis, or edema. SA/MODL Voice ID: [id number] Report ID: [id number]
== END 2017-11-02 14:49 | disposition home or self-care (01) | DRG 247 ==
LOC: ER 10:34 → ERHOLD 11:00 → 3RD-ICU 12:00 → 4TH 10-31 16:22
PROVIDERS: ADMIT Family Medicine; ATTEND Family Medicine
PROC: 027034Z Dilation of Coronary Artery, One Artery with Drug-eluting Intraluminal Device, Percutaneous Approach (ICD-10-PCS; principal; 2017-10-30)
PROC: 4A023N7 Measurement of Cardiac Sampling and Pressure, Left Heart, Percutaneous Approach (ICD-10-PCS; 2017-10-30)
PROC: B2111ZZ Fluoroscopy of Multiple Coronary Arteries using Low Osmolar Contrast (ICD-10-PCS; 2017-10-30)
PROC: 0BH17EZ Insertion of Endotracheal Airway into Trachea, Via Natural or Artificial Opening (ICD-10-PCS; 2017-10-30)
PROC: 5A1935Z Respiratory Ventilation, Less than 24 Consecutive Hours (ICD-10-PCS; 2017-10-30)
PROC: 3E033XZ Introduction of Vasopressor into Peripheral Vein, Percutaneous Approach (ICD-10-PCS; 2017-10-30)
DX: I21.11 ST elevation (STEMI) myocardial infarction involving right coronary artery (principal); I47.2 Ventricular tachycardia; E78.5 Hyperlipidemia, unspecified; I25.10 Atherosclerotic heart disease of native coronary artery without angina pectoris; Z86.74 Personal history of sudden cardiac arrest; I10 Essential (primary) hypertension; E78.2 Mixed hyperlipidemia; E66.9 Obesity, unspecified; Z68.34 Body mass index [BMI] 34.0-34.9, adult; M17.0 Bilateral primary osteoarthritis of knee; I95.9 Hypotension, unspecified; G43.909 Migraine, unspecified, not intractable, without status migrainosus; F17.200 Nicotine dependence, unspecified, uncomplicated; Z78.1 Physical restraint status
CPT/HCPCS: 31500; 36415; 51702; 70450; 71045; 80048; 80053; 80061; 80076; 80307; 80320; 80329; 81003; 81015; 82550; 82553; 82805; 82962; 83690; 83735; 83880; 84100; 84484; 85025; 85347; 85610; 85730; 92928; 92950; 93005; 93306; 93454; 94002; 99285; C1725; C1760; C1893; J0330; J0583; J1265; J1630; J1644; J2250; J3010; J3475; J7030

== ENCOUNTER 2019-05-24 10:11 | Day surgery (SDC) | payer OTHER ==
--- OUTSIDE RECORDS SUMMARY | 2019-05-24 10:14 | XMS REPORT ---
:1960 Author Organization [employer] Care Team Providers Name Role Phone Ayesha Alba Provider Role Unavailable Allergies, Adverse Reactions, Alerts Substance Reaction Event Type Paxil bodyaches Drug Allergy Problems Problem Type Condition Code Onset Dates Condition Status Problem Hypertension I10 Active Problem Hepatitis C B19.20 Active Assessment Medicare annual wellness visit, Z00.00 Active subsequent Problem Coronary atherosclerosis due to I25.84 Active severely calcified coronary lesion Problem Depression with anxiety F41.8 Active Problem Atherosclerotic heart disease of I25.10 Active robinson coronary artery without angina pectoris Problem Other specified dorsopathies, 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 Problem Hyperlipidemia, mixed E78.2 Active Problem Intractable migraine with aura with G43.111 Active status migrainosus Problem ST elevation myocardial infarction I21.11 Active involving right coronary artery Medications Medication Code Code Instructions Start End Status Dosage System Date Date Lovastatin [facility] 74270978271 40 MG Orally Active 1 tablet Once a day with the evening meal Flonase [facility] 00745203294 2 sprays per Active not nostril twice a defined day Aspirin Adult [facility] 02603633777 81 MG Orally Active 1 tablet Low Dose Once a day Metoprolol [facility] 45297386363 25 MG Orally Active 1/2 tablet Tartrate Twice a day with food Benadryl [facility] 76090873368 25 MG Orally bid Active 2 tablets Allergy as needed Results No Known Results Summary Purpose [employer] Submission
[2019-05-24] MEDS ORDERED: Ringers Lactate 1,000 ML IV ONE ×2 (10:33→14:45)
[2019-05-24] MEDS: OXYMETAZOLINE HCL 0.05% 15ML NAS ONE ×3 (10:35→11:00)
[2019-05-24] MEDS ORDERED: propofoL 200 MG/20 ML VIAL IV ONE (13:35)
[2019-05-24] MEDS ORDERED: ROCURONIUM 50 MG/5 ML VIAL IV ONE (13:36)
[2019-05-24] MEDS ORDERED: MIDAZOLAM HCL 2 MG/2 ML INJ ONE (13:36)
[2019-05-24] MEDS ORDERED: dexAMETHasone 10 MG/ML VIAL ONE (13:36)
[2019-05-24] MEDS ORDERED: LIDOCAINE 2% MPF 5 ML VIAL ONE (13:36)
[2019-05-24] MEDS ORDERED: FENTANYL CITR 250 MCG/5 ML ONE (13:36)
[2019-05-24] MEDS ORDERED: OXYMETAZOLINE HCL 0.05% 15ML NAS ONE (13:52)
[2019-05-24] MEDS ORDERED: NA CHLORIDE 0.9% 500 ML ONE (13:52)
[2019-05-24] MEDS ORDERED: LIDOCAINE 1% W/EPI 1:100,000 MDV 20 ML VIAL ONE (13:52)
[2019-05-24] MEDS ORDERED: Phenylephrine HCl 10 MG/ML 1 ML VIAL ONE (14:09)
[2019-05-24] MEDS ORDERED: GLYCOPYRROLATE 0.2 MG/ML SYR ONE (15:31)
[2019-05-24] MEDS ORDERED: NEOSTIGMINE 1 MG/ML -5 ML ONE (15:31)
--- NOTE | 2019-05-24 15:59 | P.BOP ---
Preoperative diagnosis: CRS, deviated septum, ITH, skin tags, SK Postoperative diagnosis: same Primary procedure: L NE with max, anterior ethmoid and frontal. Secondary procedure: Septoplasty, B ITR Other procedure(s): skin tag removal, shave biopsy forehead Specimen: septum and sinus trimmings. forehead lesion Anesthesia: General Implants: Propel L ethmoid, Dodge splints Fluids & blood products: crystalloid 1500ml Transferred to: Recovery Room Condition: Good
[2019-05-24] MEDS: HYDROMORPHONE HCL 1 MG/ML INJ ONE ×4 (16:19→16:35)
[2019-05-24] MEDS ORDERED: ONDANSETRON 4 MG/2 ML VIAL ONE (16:22)
[2019-05-24 17:15] VITALS: TEMP 97.2
[2019-05-24] MEDS ORDERED: TRAMADOL HCL 50 MG TAB ONE (17:23)
[2019-05-24 18:06] VITALS: BP 127/71; O2SAT 92
--- NOTE | 2019-05-28 08:05 | OP ---
Date of Procedure: 05/24/2019 Surgeon: Jenniffer Roblero MD Preoperative Diagnoses: Chronic rhinosinusitis, deviated septum, inferior turbinate hypertrophy with skin tags of the right upper eyelid and lesion of uncertain behavior of the forehead, clinically suspicious for seborrheic keratosis. Postoperative Diagnoses: Chronic rhinosinusitis, deviated septum, inferior turbinate hypertrophy with skin tags of the right upper eyelid and lesion of uncertain behavior of the forehead, clinically suspicious for seborrheic keratosis. Procedure: Left nasal endoscopy with maxillary antrostomy, anterior ethmoidectomy, and frontal sinusotomy, septoplasty, bilateral inferior turbinate reduction, shave biopsy of forehead and skin tag removal, bilateral yaneth bullosa resection. Specimens: Septum and sinonasal trimmings and forehead lesion for permanent section. Anesthesia: General. Indication For Procedure: Dionisio Trinh presented with nasal and sinus symptoms and underwent maximal medical therapy and CT imagings. The risks, benefits, and the alternatives were discussed with the patient who agreed to proceed. The patient was bothered by skin tags of the upper right eyelid and concerned about the lesion on the forehead and requested concurrent removal of these lesions. Description Of Procedure: The patient was placed under general anesthesia. The head of bed was turned 90 degrees. The nasal hairs were trimmed and the nasal cavity was packed with Afrin-soaked pledgets. The patient was noted to have significant right-sided septal deviation with an irritated appearance of the septal mucosa on the right side with thinning and crusting. Photo documentation was unable to be obtained due to equipment malfunction. This was not felt to be a critical aspect of this case and the decision was made to proceed. The Stamp.it headpiece was secured to the patient's forehead and the laser pointer was used to perform registration with the preoperative CT scan, which had been previously loaded into the system. Accuracy was felt to be very good and decision was made to proceed. The 0-degree endoscope was used to perform a nasal endoscopy. The left side was examined, there the inferior turbinate was noted to be enlarged and middle turbinate was noted to be widened consistent with preoperative imaging demonstrating a yaneth bullosa. The middle turbinate was injected with 1% lidocaine with epinephrine and a similar injection was performed on the right side. A sickle knife was used to incise through the mucosa of the head of the right and left middle turbinate and endoscopic scissor was used to cut the inferior and superior aspect and the lateral portion of the yaneht bullosa was removed using a Blakesley. Microdebrider fitted with inferior turbinate blade was used to refine the cut edges and trim excess mucosa of the middle turbinate. The middle meatus was then packed with Afrin-soaked pledgets and time for effect was allowed. The pledgets on the left side were removed and the maxillary antrostomy was performed by removal of the uncinate process using a backbiter and 90-degree Blakesley. The maxillary antrostomy was carefully enlarged by removal of excess tissue. A left infraorbital ethmoid cell was noted and carefully entered with removal of the inferior aspect of this cell in order to provide wider antrostomy opening. Care was taken to avoid damage to the lamina. After opening the cell, attention was turned to the ethmoid cavity. The image guidance suction was calibrated and used to aid in careful dissection of the anterior ethmoid cells. The ethmoid bulla was entered and carefully dissected using a curette and removal of bony partitions was performed using a straight, 45, and 90-degree Blakesley. The ethmoid cavity was packed with Afrin-soaked pledgets to obtain hemostasis. After removal of these pledgets, the Entellus balloon device was used to carefully probe within the region of the frontal recess. There was anteriorly based supraorbital cells and the balloon was used to help to dissect and fracture these bony partitions. The frontal recess area was then better visualized with a 30 and 70-degree rigid endoscope and a front- to-back and [id number] Giraffe dissectors were used to remove these bony partitions until the frontal recess was well developed and widely patent. There was mild mucosal edema within these cells, which was noted during removal. The frontal recess tract itself was carefully preserved with regard to the mucosal linings. These areas were packed with Afrin-soaked pledgets and attention was turned to the septum. The right mucosa was injected along the caudal aspect of the septum. The endoscopes were set aside and the septoplasty was performed under visualization with a headlight. Using nasal speculum, a right hemitransfixion incision was made. The caudal aspect of the septum was identified and mucosal flap was developed anteriorly along the right mucosal flap, as the mucosa was elevated. The mucosa was noted to be extremely thin and friable resulting in laceration of the mucosa on the side. Mucosal flap elevation proceeded as carefully as feasible. Given once the bone and cartilage were identified, the deviated portions were carefully excised, leaving intact a generous portion of cartilage anteriorly. After removal of the bony and cartilaginous fragments, the septum was noted to rest approximately in midline. Attention was then turned to the inferior turbinates. A needlepoint cautery was used to perform a submucosal cauterization of the middle turbinates along the length of the middle turbinate. A Gomez elevator was then used to down fracture both of the inferior turbinates in order to provide an improved nasal airway. The nasal cavity was thoroughly irrigated and suctioned. All pledgets were removed and preparations were made for closure and dressings. Due to the risk of mucosal adhesions, a Propel steroid eluting stent was placed within the left ethmoid cavity and positioned to provide some delivery of steroid into the frontal recess. Given the overall appearance of the right nasal mucosa along with the lacerations and concern for chronic digital trauma to the mucosa, the decision was made to place Dodge splints. The splints were placed within the right and left nasal cavity and secured using a 4-0 nylon suture anteriorly. Due to placement of the splints and the friability of the mucosa, suturing of the septum was not performed though that blood circulation to fragments of the mucosa would not be impaired. The sinus/nasal portion of the procedure was concluded. The sinus navigation headpiece was removed and the patient's face was prepped with Betadine and redraped in a sterile fashion. Four skin tags of the right upper eyelid were noted. These were grasped with a forceps and removed with scissors. No significant bleeding was noted and direct pressure was applied to these lesions. Attention was then turned to the mid forehead. There was a light brown irregular lesion clinically suspicious for seborrheic keratosis, but due to the pigmented aspects, which were slightly irregular, the area was injected with local anesthetic. A 15-blade scalpel was used to perform a shave biopsy of this lesion. The specimen was sent to pathology for permanent section. Bovie electrocautery and direct pressure was used to obtain hemostasis of this area and a triple antibiotic ointment was applied. The patient's face was cleaned and dried and the patient was returned to care of anesthesia for awakening extubation in the operating room, which proceeded without difficulty. Complications: None. Disposition: The patient will be discharged home later today and follow up with Dr. Roblero in about 10 days for splint removal. MORGAN/HAMMAD Voice ID: [id number] Report ID: [id number] MTDD
== END 2019-05-24 18:05 | disposition home or self-care (01) ==
LOC: OR 10:11
PROVIDERS: ATTEND Otolaryngology
PROC: 8E09XBZ Computer Assisted Procedure of Head and Neck Region (ICD-10-PCS; 2019-05-24)
PROC: 09SM4ZZ Reposition Nasal Septum, Percutaneous Endoscopic Approach (ICD-10-PCS; 2019-05-24)
PROC: 0HB1XZX Excision of Face Skin, External Approach, Diagnostic (ICD-10-PCS; 2019-05-24)
PROC: 09TL8ZZ Resection of Nasal Turbinate, Via Natural or Artificial Opening Endoscopic (ICD-10-PCS; principal; 2019-05-24 13:15)
PROC: 099T8ZZ Drainage of Left Frontal Sinus, Via Natural or Artificial Opening Endoscopic (ICD-10-PCS; 2019-05-24 13:15)
PROC: 09BV8ZZ Excision of Left Ethmoid Sinus, Via Natural or Artificial Opening Endoscopic (ICD-10-PCS; 2019-05-24 13:15)
DX: J34.2 Deviated nasal septum (principal); J32.2 Chronic ethmoidal sinusitis; J32.1 Chronic frontal sinusitis; J34.3 Hypertrophy of nasal turbinates; L82.1 Other seborrheic keratosis; L91.8 Other hypertrophic disorders of the skin; I10 Essential (primary) hypertension; E78.00 Pure hypercholesterolemia, unspecified; I25.10 Atherosclerotic heart disease of native coronary artery without angina pectoris; K21.9 Gastro-esophageal reflux disease without esophagitis; Z87.891 Personal history of nicotine dependence; Z82.49 Family history of ischemic heart disease and other diseases of the circulatory system
CPT/HCPCS: 31240; 31254; 31276; 31267; 61782; 30520; 11102; 11103; 88304; 88305; 88311; J2704; J2370; J2250; J3010; J1100; J1170 ×2; J2710; J7120 ×2; J7040; J2405

== ENCOUNTER 2021-10-05 07:21 | Observation (INO) | payer OTHER, SELFPAY ==
[2021-09-29 14:08] LABS: Absolute Lymphocytes (CBC) 2.2 K/uL (0.7-4.9); Hematocrit 46.7 % (39.6-49.0); Lymphocytes % 25.9 % (15.3-44.8); MCV 84.3 fL (80-100); MPV 9.2 fL (7.6-11.3); RBC Red Blood Cell Count 5.53 M/uL (4.33-5.43)
[2021-09-29 14:11] LABS: SARS-CoV-2 Antigen Rapid Res Negative (Negative)
[2021-09-29 14:15] LABS: Protime INR 1.03
--- NOTE | 2021-09-29 14:19 | RAD REPORT ---
EXAM DESCRIPTION: RAD - Chest Pa And Lat (2 Views) - 09/29/2021 2:13 pm CLINICAL HISTORY: Pre op pending heart catheterization COMPARISON: Chest Single View dated 11/02/2017; Chest Single View dated 11/01/2017; Chest Single View dated 10/31/2017; Chest Single View dated 10/30/2017 FINDINGS: Lines: None. Lungs: No evidence of edema or pneumonia. Pleural: No significant pleural effusions or pneumothorax. Cardiac: The heart size is within normal limits. Bones: No acute fractures. Other: IMPRESSION: No acute cardiopulmonary disease.
[2021-09-29 14:27] LABS: Potassium 4.6 mmol/L (3.5-5.1)
[2021-10-05] MEDS ORDERED: FENTANYL CITR 100 MCG/2 ML ONE ×2 (07:31→10:49)
[2021-10-05] MEDS ORDERED: MIDAZOLAM HCL 2 MG/2 ML INJ ONE (07:32)
[2021-10-05] MEDS ORDERED: ATROPINE SULF 1 MG/10 ML SYR IV ONE (07:32)
[2021-10-05] MEDS ORDERED: NA CHLORIDE 0.9% 50 ML IV ONE (07:32)
[2021-10-05] MEDS ORDERED: NA CHLORIDE 0.9% 500 ML ONE ×3 (07:51→10:51)
[2021-10-05] MEDS ORDERED: HEPA 1000U/500MLS 1,000 UNIT/500 ML BAG IV ONE (08:05)
[2021-10-05] MEDS ORDERED: PRASUGREL (EFFIENT) 10 MG TAB ONE (08:46)
[2021-10-05] MEDS ORDERED: MORPHINE 4 MG/ML SYR ONE (09:38)
[2021-10-05 10:56] LABS: Absolute Lymphocytes (CBC) 2.2 K/uL (0.7-4.9); Hematocrit 42.6 % (39.6-49.0); Lymphocytes % 20.5 % (15.3-44.8); MCV 85.7 fL (80-100); MPV 8.8 fL (7.6-11.3); RBC Red Blood Cell Count 4.97 M/uL (4.33-5.43)
--- NOTE | 2021-10-05 11:00 | RAD REPORT ---
EXAM DESCRIPTION: CT - Abdomen Pelvis Wo Contrast - 10/05/2021 10:25 am CLINICAL HISTORY: Abdominal pain. post cath procedure COMPARISON: CT ABDOMEN PELVIS WO CONTRAST dated 09/22/2012 TECHNIQUE: CT imaging of the abdomen and pelvis was performed without contrast. Solid organ, bowel a nd vascular assessment is limited due to lack of IV and oral contrast. All CT scans are performed using dose optimization technique as appropriate and may include automated exposure control or mA/KV adjustment according to patient size. FINDINGS: The lower lung hayes are clear. The liver, spleen, pancreas, adrenal glands and right kidney are within normal limits for a limited n on-contrast examination.Benign cyst is seen projecting from the inferior aspect of the left kidney. No bowel obstruction, free air, free fluid or abscess. The appendix is normal. There is no evidence of a retroperitoneal bleed or right groin hematoma. The osseous structures are within normal limits. IMPRESSION: No evidence of a retroperitoneal bleed or a right groin hematoma. A limited non-contrast examination was performed as detailed.
--- OUTSIDE RECORDS SUMMARY | 2021-10-05 12:24 | XMS REPORT | Continuity of Care Document ---
:1960 Author Organization [facility] t Address [address] [place] [address] Care Team Providers Name Role Phone Unavailable Unavailable Unavailable Problems This patient has no known problems. Allergies, Adverse Reactions, Alerts Allergy Allergy Status Severity Reaction(s) Onset Inactive Treating Comm ents Source Name Type Date Date Clinician Paxil Adverse Active bodyaches Common Reaction [facility] Medications Ordered Filled Start Stop Current Ordering Indication Dosage Frequency Signature Comments Components Source Medication Medication Date Date Medication? Clinician (SIG) Name Name Lovastatin Lovastatin Yes Ayesha 1 tablet Common [facility] with the Spirit evening CHI meal [facility] Aspirin Aspirin Yes Ayesha 1 tablet Comm on Adult Low Adult Low Gentry Spir it Dose Dose [facility] Benadryl Benadryl Yes Ayesha 2 tablets C ommon Allergy Allergy Gentry as needed Spi rit [facility] Metoprolol Metoprolol Yes Ayesha 1/2 tablet Common Tartrate Tartrate Gentry with food S pirit [facility] Flonase Flonase Yes Ayesha not Common Gentry defined [facility] Procedures This patient has no known procedures. Encounters Start End Encounter Admission Attending Care Care Encounter Source Date/Time Date/Time Type Type Clinicians Facility Department ID 2021-08-30 Outpatient [facility] [id number] Common 10:31:01 [facility] 2021-08-26 Outpatient [facility] [id number] Common 10:20:00 [facility] 2021-09-28 2021-09-28 ambulatory [facility] [id number] Common 00:00:00 00:00:00 [facility] 2021-08-30 2021-08-30 ambulatory [facility] [id number] Common 00:00:00 00:00:00 [facility] 2019-01-08 2019-01-08 [facility] [id number] Common 09:40:00 09:40:[address] [facility] [address] [facility] 2019-01-02 2019-01-02 [facility] [id number] Common 08:00:00 08:00:00 [address] [facility] [address] [facility] 2018-07-04 2018-07-04 [facility] [id number] Common 10:00:00 10:00:00 [address] [facility] [address] [facility] 2017-11-09 2017-11-09 [facility] [id number] Common 11:30:00 11:30:[address] [facility] [address] [facility] 2017-09-06 2017-09-06 [facility] [id number] Common 14:30:00 14:30:[address] [facility] [address] [facility] Results Test Description Test Time Test Comments Results Result Comments Source LIPID PANEL 2021-08-24 06:16:31 Test Item Value Reference Range Interpretation Comme nts CHOLESTEROL (test code = 2210) 198 MG/DL <200 TRIGLYCERIDES (test code = 2232) 207 MG/DL <150 H HDL CHOLESTEROL (test code = 44 MG/DL >39 2220) CALC LDL CHOL (test code = 2237) 122 MG/DL <100 H NOTE: CALCULATED LDL IS BASED ON SARAH-BOLAÑOS METHOD WHICHINCLUDES A DJUSTABLE TRIGLYCERIDE:VL DL CHOLESTEROL RATIO.THIS FACT OR VARIES BY MEASURED TRIGLY CERIDE AND NON-HDLCHOLESTE ROL CONCENTRATIONS WITH INCREASED CALCULATED LDL SEENIN HIGHER T RIGLYCERIDE OR LOWER NON-HDL S PECIMENS. FOR MOREINFORMATION , SEE CLIENT ANNOUNCEMENT AT [email or web address] RATIO LDL/HDL (test code = 2.77 RATIO <3.55 UNLESS OTHERWISE 2238) INDICATED, ALL TESTING PERFORMED ATCLINICAL PATH [facility], [facility]. [address], [place] [address] LABORATORY DIRE CTOR: ENID POTTS M.D. CLIA NUMBER [id number] [place]. [id number] CULTURE, [id number] 08:58:35SPECIMEN NUMBER: [id number] CULTURE, URINE SPECIMEN NUMBER: [id number] SPECIMEN COMMENT: URINE SOURCE: URINE REPORT STATUS: FINAL FINAL REPORT: 08/14/2021 NO GROWTH AFTER 36 HOURS INCUBATIONCBC W/AUTO DIFF WITH [id number] 08:40:52 Test Item Value Reference Range Interpretation Comments WBC (test code = 8.6 K/UL 3.5-11.0 1001) RBC (test code = 5.20 M/UL 4.50-6.10 1002) HEMOGLOBIN (test code 15.1 G/DL 13.5-17.0 = 1003) HEMATOCRIT (test code 43.6 % 40.0-51.0 = 1004) MCV (test code = 83.8 fL 80.0-99.0 1005) MCH (test code = 29.0 PG 25.0-33.0 1006) MCHC (test code = 34.6 G/DL 31.0-36.0 1007) RDW (test code = 12.1 % 11.5-15.0 1038) NEUTROPHILS (test 55.5 % code = 1008) LYMPHOCYTES (test 26.2 % code = 1010) MONOCYTES (test code 13.8 % = 1011) EOSINOPHILS (test 3.0 % code = 1012) BASOPHILS (test code 1.1 % = 1013) IMMATURE GRANULOCYTES 0.4 % (test code = 1036) NUCLEATED RBCS (test 0.0 /100 See_Comment [Autom ated code = 1065) WBC'S message] The sy stem which generated this result transmitted reference range : 0.0. The refere nce range was not u sed to interpret th is result as normal/abnormal . PLATELET COUNT (test 312 K/UL 130-400 code = 1015) ABSOLUTE NEUTROPHILS 4.76 K/UL 1.50-7.50 (test code = 1066) ABSOLUTE LYMPHOCYTES 2.24 K/UL 1.00-4.00 (test code = 1067) ABSOLUTE MONOCYTES 1.18 K/UL 0.20-1.00 H (test code = 1068) ABSOLUTE EOSINOPHILS 0.26 K/UL 0.00-0.50 (test code = 1040) ABSOLUTE BASOPHILS 0.09 K/UL 0.00-0.20 (test code = 1069) ABS IMMATURE 0.03 K/UL 0.00-0.10 GRANULOCYTES (test code = 1020) ABS NUCLEATED RBCS 0.00 K/UL 0.00-0.11 (test code = 92762) HEMOGLOBIN [id number] 07:39:28 Test Item Value Reference Range Interpretation Comments HEMOGLOBIN A1c (test code = 51719) 5.9 % 4.2-5.6 H TSH, THIRD [id number] 06:39:34 Test Item Value Reference Range Interpretation Comments TSH, THIRD GENERATION (test code 1.720 UIU/ML 0.400-4.100 = 1) COMPREHENSIVE METABOLIC [id number] 04:03:28 Test Item Value Reference Range Interpretation Comments GLUCOSE (test code = 80 MG/DL 70-99 2216) BUN (test code = 16 MG/DL 8-23 2207) CREATININE (test 1.10 MG/DL 0.80-1.40 code = 2214) eGFR (2020 CKD-EPI) 75 >60 (test code = 92590) ML/MIN/1.73 CALC BUN/CREAT (test 15 RATIO 09-07 code = 2235) SODIUM (test code = 141 MEQ/L 581-504 4377) POTASSIUM (test code 4.9 MEQ/L 3.5-5.4 = 2227) CHLORIDE (test code 101 MEQ/L 95-107 = 2215) CARBON DIOXIDE (test 27 MEQ/L 19-31 code = 2206) CALCIUM (test code = 10.0 MG/DL 8.5-10.5 2208) PROTEIN, TOTAL (test 7.7 G/DL 6.1-8.3 code = 222) ALBUMIN (test code = 4.8 G/DL 3.5-5.2 2200) CALC GLOBULIN (test 2.9 G/DL 1.9-3.7 code = 2240) CALC A/G RATIO (test 1.7 RATIO 1.0-2.6 code = 2234) BILIRUBIN, TOTAL 1.0 MG/DL See_Comment [Automated message] (test code = 2207) The syste m which generated this result transmitted ref erence range: <=1.2. T he reference range was not used to int erpret this result as normal/abnormal . ALKALINE PHOSPHATASE 70 U/L 40-123 (test code = 2203) AST (test code = 27 U/L 9-50 2217) ALT (test code = 33 U/L 5-50 UNLE SS 2218) OTHERWISE INDIC ATED, ALL TESTING PER FORMED ATCLINICAL PATH [facility] [place] [address] [place] [address] LABORATORY DIRE CTOR: Hever TERANIA NUMBER [id number] CAP ACCREDITATION N O. [id number]
[2021-10-05] MEDS ORDERED: FENTANYL CITR 100 MCG/2 ML IV PRN (12:59)
[2021-10-05] MEDS ORDERED: ACETAMINOPHEN 325 MG TABLET PO PRN (13:02)
--- NOTE | 2021-10-05 13:29 | ECHO ---
HEIGHT: 5 ft 11 in WEIGHT: 248 lb 0 oz DATE OF STUDY: 10/05/[address]: Trell Reddy MD 2-DIMENSIONAL: YES M.MODE: YES DOPPLER: YES COLOR FLOW: YES TDS: NO PORTABLE: YES DEFINITY: NO BUBBLE STUDY: NO DIAGNOSIS: POST HEART CATH DISTRESS CARDIAC HISTORY: CATHERIZATION: SURGERY: PROSTHETIC VALVE: PACEMAKER: MEASUREMENTS (cm) DIASTOLIC (NORMALS) SYSTOLIC (NORMALS) IVSd 1.1 (0.6-1.2) LA Diam (1.9-4.0) LVEF 61% LVIDd 4.9 (3.5-5.7) LVIDs 3.3 (2.0-3.5) %FS 32% LVPWd 1.2 (0.6-1.2) Ao Diam 3.2 (2.0-3.7) 2 DIMENSIONAL ASSESSMENT: RIGHT ATRIUM: NORMAL LEFT ATRIUM: NORMAL RIGHT VENTRICLE: NORMAL LEFT VENTRICLE: NORMAL TRICUSPID VALVE: NORMAL MITRAL VALVE: PULMONIC VALVE: NORMAL AORTIC VALVE: NORMAL PERICARDIAL EFFUSION: SMALL AORTIC ROOT: NORMAL LEFT VENTRICULAR WALL MOTION: NORMAL DOPPLER/COLOR FLOW: MILD MITRAL REGURGITATION. COMMENTS: NORMAL LEFT VENTRICULAR EJECTION FRACTION 55-60%. NORMAL WALL MOTION. MILD MITRAL REGURGITATION. SMALL PERICARDIAL EFFUSION. TECHNOLOGIST: Dav MCPHERSON
[2021-10-05] MEDS ORDERED: SODIUM CHL 0.9% 1000 ML BAG IV SCH ×2 (14:00)
[2021-10-05] MEDS ORDERED: NA CHLORIDE 0.9% 1,000 ML IV SCH (14:00)
[2021-10-05 15:28] VITALS: BMI 34.5
--- NOTE | 2021-10-05 16:36 | OP ---
Surgeon: Trell Reddy MD Facilities Engineer: Ms. Vipin Thakkar. The patient will go home today at about 2 p.m. and I will see him in the office in 2 weeks. Admitted to my service as an outpatient to the laborer prestressed concrete on 10/05/2021. In the laborer prestressed concrete; he underwent a left heart catheterization, selective coronary arteriogram, common femoral artery angiogram, prima ry stent of the circumflex. Indication: Unstable angina and coronary artery disease. Mr. Trinh is known to have CAD. He has had a stent of his RCA quite few years ago. He had classic symptoms for unstable angina. Procedure In Detail: He came to the laborer prestressed concrete today as an outpatient, prepped and draped in routine s terile fashion. Given Versed and fentanyl for sedation. A 6-Albanian sheath was introduced in the rig ht common femoral artery successfully. Angiography in the common femoral artery was normal. StarClo se was used to close the procedure. Roman catheter left and right were used to cannulate the left main and right main respectively. His LAD was normal. He had a 95% proximal circumflex, had a 50% d iagonal. LAD was unremarkable. His RCA showed about a 60% to 70% stenosis post an old mid RCA stent . We decided to intervene with the circumflex. He was given aspirin, 60 of Effient, Angiomax. An X B3.5 guide with sidehole was used to cannulate the left main. A Milan wire was used to close the le ranjan. A 3.0 x 12 mm Synergy stent was used as a primary stent to the proximal circumflex with 0% res idual. Anesthesia: Total conscious sedation 60 minutes. Complications: None. Blood Loss: 5 mL. Postoperative Diagnosis: Coronary artery disease, status post successful primary stent of the circum flex. We will plan to stage the RCA intervention in about 2 weeks to 4 weeks. BRANDI/MOLLYL Voice ID: [id number] Report ID: [id number]
[2021-10-05] MEDS: TRAMADOL HCL 50 MG TAB PO PRN (17:58)
[2021-10-05 19:02] LABS: Specific Gravity 1.025 (1.005-1.030); Urine Bilirubin Negative (Negative); Urine Blood Negative (Negative); Urine Clarity Clear (Clear); Urine Color Yellow (Yellow); Urine Glucose Negative (Negative); Urine Protein Negative (Negative); Urine Urobilinogen 0.2 mg/dL (0.2-1.0); Urine pH 6.5 (5.0-7.0)
[2021-10-05] MEDS ORDERED: ONDANSETRON 4 MG/2 ML VIAL IV PRN (19:24)
[2021-10-05] MEDS: MORPHINE 4 MG/ML SYR IV PRN (19:30)
[2021-10-05] MEDS: NITROGLYCERIN 0.4 MG/TAB SL PRN ×2 (20:56→21:03)
[2021-10-05] MEDS: COLCHICINE 0.6 MG TAB PO SCH (22:26)
[2021-10-06] MEDS: MORPHINE 4 MG/ML SYR IV PRN ×2 (00:26→05:03)
[2021-10-06] MEDS: NA CHLORIDE 0.9% 1,000 ML IV SCH ×2 (00:30→08:44)
--- NOTE | 2021-10-06 06:39 | EKG ---
Test Date: 2021-10-05 Test Time: 20:54:36 Solid Plasterer: RT MEASUREMENT RESULTS: Intervals: Rate: 84 IA: 152 QRSD: 88 QT: 364 QTc: 430 [place]: P: 35 IA: 152 QRS: 64 T: 59 INTERPRETIVE STATEMENTS: Normal sinus rhythm Junctional ST depression, probably abnormal Abnormal ECG Compared to ECG 10/31/2017 10:58:21 ST (T wave) deviation now present T-wave abnormality no longer present Electronically Signed On 10-06-21 06:38:32 CDT by Trell Reddy
[2021-10-06] MEDS: TRAMADOL HCL 50 MG TAB PO PRN (08:45)
[2021-10-06] MEDS: COLCHICINE 0.6 MG TAB PO SCH (08:45)
[2021-10-06] MEDS ORDERED: ASPIRIN 81 MG CHEWABLE TABLET PO SCH (09:00)
[2021-10-06] MEDS ORDERED: METOPROLOL TAR 25 MG TAB PO SCH (09:00)
[2021-10-06] MEDS ORDERED: MULTIVITAMIN TAB PO SCH (09:00)
[2021-10-06] MEDS ORDERED: CLOPIDOGREL 75 MG TABLET PO SCH (09:00)
[2021-10-06 12:08] VITALS: O2SAT 98
[2021-10-06 13:10] VITALS: BP 113/61; TEMP 97.4
[2021-10-06] MEDS ORDERED: ATORVASTATIN 20 MG TAB PO SCH (21:00)
--- NOTE | 2021-10-07 06:43 | ECHO ---
HEIGHT: 5 ft 11 in WEIGHT: 248 lb 0 oz DATE OF STUDY: 10/06/[address]: Trell Reddy MD 2-DIMENSIONAL: YES M.MODE: YES DOPPLER: NO COLOR FLOW: NO TDS: NO PORTABLE: YES DEFINITY: NO BUBBLE STUDY: NO DIAGNOSIS: PERICARDIAL EFFUSION CARDIAC HISTORY: CATHERIZATION: SURGERY: PROSTHETIC VALVE: PACEMAKER: MEASUREMENTS (cm) DIASTOLIC (NORMALS) SYSTOLIC (NORMALS) IVSd 1.1 (0.6-1.2) LA Diam 3.4 (1.9-4.0) LVEF 63% LVIDd 4.7 (3.5-5.7) LVIDs 3.1 (2.0-3.5) %FS 34% LVPWd 1.1 (0.6-1.2) Ao Diam 2.8 (2.0-3.7) 2 DIMENSIONAL ASSESSMENT: RIGHT ATRIUM: NORMAL LEFT ATRIUM: NORMAL RIGHT VENTRICLE: NORMAL LEFT VENTRICLE: NORMAL TRICUSPID VALVE: NORMAL MITRAL VALVE: NORMAL PULMONIC VALVE: NORMAL AORTIC VALVE: NORMAL PERICARDIAL EFFUSION: SMALL AORTIC ROOT: NORMAL LEFT VENTRICULAR WALL MOTION: NORMAL DOPPLER/COLOR FLOW: NOT REQUESTED. COMMENTS: NORMAL LEFT VENTRICULAR SIZE AND FUNCTION. SMALL PERICARDIAL EFFUSION. NO CHANGE FROM YESTERDAY. TECHNOLOGIST: Dav MCPHERSON
== END 2021-10-06 13:15 | disposition home or self-care (01) ==
LOC: CCL 07:21 → INTOOBSV 08:15 → 2ND 08:15
DX: I25.110 Atherosclerotic heart disease of native coronary artery with unstable angina pectoris (principal); I10 Essential (primary) hypertension; E78.2 Mixed hyperlipidemia; R73.03 Prediabetes; R09.89 Other specified symptoms and signs involving the circulatory and respiratory systems; Z95.5 Presence of coronary angioplasty implant and graft; Z20.822 Contact with and (suspected) exposure to COVID-19; Z82.49 Family history of ischemic heart disease and other diseases of the circulatory system
CPT/HCPCS: 93307; 93005; 93306; 85025 ×2; 80048; 36415 ×2; 85610; 82947 ×4; 85347; 85730; 81003; 74176; 71046; 93454; 87811; C1893; Q9967; C1725; C9600; J2250; J3010 ×3; J0583; J7040 ×3; J7030 ×3; J1644; G0378; G0379

== ENCOUNTER 2022-02-14 06:30 | Day surgery (SDC) | payer OTHER ==
[2022-02-11 14:26] LABS: Absolute Lymphocytes (CBC) 1.6 K/uL (0.7-4.9); Lymphocytes % 22.7 % (15.3-44.8); MPV 8.8 fL (7.6-11.3); RBC Red Blood Cell Count 5.06 M/uL (4.33-5.43)
[2022-02-11 14:32] LABS: Protime INR 1.02
[2022-02-11 14:42] LABS: Potassium 4.2 mmol/L (3.5-5.1)
[2022-02-14] MEDS ORDERED: LIDOCAINE 1% 20 ML MDV ONE (06:37)
[2022-02-14] MEDS ORDERED: HEPA 1000U/500MLS 2,000 UNIT/1,000 ML BAG IV ONE (06:37)
[2022-02-14] MEDS ORDERED: FENTANYL CITR 100 MCG/2 ML ONE (06:41)
[2022-02-14] MEDS ORDERED: PRASUGREL (EFFIENT) 10 MG TAB ONE (06:41)
[2022-02-14] MEDS ORDERED: NITROGLYCERIN/D5W 25 MG/250 ML BTL IV ONE (06:42)
[2022-02-14] MEDS ORDERED: ATROPINE SULF 1 MG/10 ML SYR IV ONE (06:42)
[2022-02-14] MEDS ORDERED: NA CHLORIDE 0.9% 50 ML IV ONE (06:42)
[2022-02-14] MEDS ORDERED: MIDAZOLAM HCL 2 MG/2 ML INJ ONE ×3 (06:42→08:33)
[2022-02-14] MEDS ORDERED: NA CHLORIDE 0.9% 500 ML ONE (06:43)
[2022-02-14 07:33] VITALS: TEMP 97
[2022-02-14] MEDS ORDERED: ASPIRIN 325 MG TAB ONE (07:46)
[2022-02-14 12:45] VITALS: O2SAT 98
--- NOTE | 2022-02-14 13:55 | EKG ---
Test Date: 2022-02-11 Test Time: 14:07:51 Insole Doubler: PAYAL MEASUREMENT RESULTS: Intervals: Rate: 86 [place]: 146 QRSD: 88 QT: 356 QTc: 426 [place]: P: 51 [place]: 146 QRS: 70 T: 73 INTERPRETIVE STATEMENTS: Normal sinus rhythm Normal ECG Compared to ECG 10/05/2021 20:54:36 ST (T wave) deviation no longer present Electronically Signed On 02-14-22 13:51:25 LINE HAUL DRIVER by Steve Lopez
[2022-02-14 13:58] VITALS: BP 106/68
--- NOTE | 2022-02-14 18:06 | OP ---
Surgeon: Trell Reddy MD Marine Pipefitter: Ms. Garima Thakkar. He will remain in the hospital for 8 hours after the procedure and he will go home today. I will see him in the office in 2 weeks. Admitted to my service as an outpatient today 02/14/2022. He underwent left heart catheterization, s elective coronary arteriogram, primary RCA stent. Indication: CAD, status post recent non-STEMI and recent angioplasty and stent of the circumflex, OM region, comes back for a staged RCA stenosis intervention. Procedure In Detail: In the senior label specialist, he was prepped and draped in routine sterile fashion. Given V ersed and fentanyl for sedation. A 6-Latvian sheath introduced in the right common femoral artery suc cessfully using the Seldinger technique and 10 cc of Xylocaine. Angiography there was normal StarClo se was used to close the case. A JR4 guide 6-Latvian with side-hole was used to cannulate the RCA. A ngiography showed an 80% mid RCA stenosis, diffuse disease in the PDA. A [place] wire was used to field crop farmworker ss the lesion. A 3.5 x 12 Synergy stent was deployed at 14 atmospheres with 0% residual no complicat ions. Total conscious sedation was 30 minutes. The patient received Angiomax, Effient, and aspirin during the procedure. There were no complications. Blood Loss: 5 cc. Final Diagnosis: Coronary artery disease, status post successful primary stent of the RCA. We will continue his medical regimen at home. BRANDI/HAMMAD Voice ID: [id number] Report ID: [id number]
== END 2022-02-14 16:03 | disposition home or self-care (01) ==
LOC: CCL 06:30
DX: I25.10 Atherosclerotic heart disease of native coronary artery without angina pectoris (principal); I25.2 Old myocardial infarction; Z95.5 Presence of coronary angioplasty implant and graft
CPT/HCPCS: 93005; 85025; 80048; 36415; 85610; 82947; 85347; 85730; 93454; C1893; Q9966; C1725; C9600; J2250 ×3; J3010; J0583; J7040; J1644; J0461

== ENCOUNTER 2023-03-03 12:33 | Day surgery (SDC) | payer OTHER ==
[2023-03-01 14:30] LABS: Protime INR 1.06
[2023-03-01 14:34] LABS: Absolute Lymphocytes (CBC) 1.7 K/uL (0.7-4.9); Hematocrit 43.2 % (39.6-49.0); Lymphocytes % 23.1 % (15.3-44.8); MCV 85.9 fL (80-100); MPV 8.7 fL (7.6-11.3); Platelets 255 thou/uL (152-406); RBC Red Blood Cell Count 5.03 M/uL (4.33-5.43)
--- NOTE | 2023-03-01 14:50 | RAD REPORT ---
EXAM DESCRIPTION: Figueroa Campbell And Xuan (2 Views)03/01/2023 2:24 pm CLINICAL HISTORY: Preop for cardiac catheterization. Hypertension COMPARISON: 2021 FINDINGS: The lungs appear clear of acute infiltrate. The heart is normal size IMPRESSION: No acute abnormalities displayed
[2023-03-01 14:53] LABS: Potassium 4.2 mEq/L (3.5-5.1)
[2023-03-03] MEDS ORDERED: NA CHLORIDE 0.9% 500 ML ONE ×2 (12:41→15:31)
[2023-03-03] MEDS ORDERED: FENTANYL CITR 100 MCG/2 ML ONE (15:12)
[2023-03-03] MEDS ORDERED: VERAPAMIL HCL 10 MG/4 ML VIAL IV ONE (15:12)
[2023-03-03] MEDS ORDERED: HEPARIN 5000 UNIT/ML 1 ML VIAL ONE (15:13)
[2023-03-03] MEDS ORDERED: MIDAZOLAM HCL 2 MG/2 ML INJ ONE (15:13)
[2023-03-03] MEDS ORDERED: ATROPINE SULF 1 MG/10 ML SYR IV ONE (15:13)
--- NOTE | 2023-03-03 15:13 | EKG ---
Test Date: 2023-03-01 Test Time: 15:05:54 Insurance Writer: LONG MEASUREMENT RESULTS: Intervals: Rate: 79 [place]: 140 QRSD: 88 QT: 354 QTc: 405 [place]: P: 26 [place]: 140 QRS: 47 T: 61 INTERPRETIVE STATEMENTS: Normal sinus rhythm Normal ECG Compared to ECG 02/11/2022 14:07:51 No significant changes Electronically Signed On 03-03-23 15:09:29 COPYMAN by Steve Lopez
[2023-03-03] MEDS ORDERED: HEPARIN 10,000 UNIT/10 ML VIAL IV ONE (15:14)
[2023-03-03] MEDS ORDERED: Phenylephrine HCl 10 MG/ML 1 ML VIAL ONE (15:21)
--- NOTE | 2023-03-03 17:04 | OP ---
Date of Procedure: 03/03/2023 Surgeon: SUSHANT CHAVEZ Procedures Performed: 1.Selective coronary angiogram. 2.Left heart catheterization. 3.Failed attempt PCI of proximal CHIEF SUPPLY CHAIN OFFICER of the left circumflex. Indication: Chest pain and abnormal stress test. Access: Right radial artery 6-Burmese closed with TR band. Complications: None. Bleeding: Less than 20 mL. Description Of Procedure: After risks, benefits, alternatives were explained, patient agreed to proc edure, and signed informed consent. The patient was brought into cardiac catheterization laboratory, prepped and draped in usual sterile fashion. Then I accessed right radial artery using pediatric mi cropuncture kit. An incremental sedation was given to achieve adequate moderate sedation. Total sed ation time was 1 hour. I placed a 6-Burmese Slender sheath in right radial artery and then I took a 5 -Burmese [place] 4.0 catheter over a J-wire into the aortic root, engaged the left main, took standard v iews and then in the RCA, took standard views and the catheter was pushed over the wire into the LV, measured the LVEDP. Pullback did not record any gradient and then I gave systemic heparin to assure ACT level above 250. We took EBU3.5 guide into the aortic root 6-Burmese over a J-wire and engaged le ft main and tried with a Runthrough wire, I could not cross the CHIEF SUP[employer]Y CHAIN OFFICER and then tried a Fielder XT and I crossed the CHIEF SUPPLY CHAIN OFFICER partially, however, could not advance further and there was no microcatheter availab le to further proceed and decided to abort the procedure and plan to do it at a higher level of care facility. Then, I removed the catheter after a satisfactory angiogram and removed the sheath and celia valentin TR band with good hemostasis. Findings: 1.Left main; large and normal. 2.LAD; proximal 20%, mid 60% and then mid to distal 50%. 3.Left circumflex; proximal CHIEF SUP[employer]Y CHAIN OFFICER 100%, failed PCI, but is getting collaterals from the RCA. 4.RCA; proximal 20%, mid patent stent and the PDA is very small, less than 1 mm vessel, has two tand em lesions, one 80%, one 90%. 5.LVEDP is normal at 8 mmHg. Conclusion: 1.Severe left circumflex stenosis, CHIEF SUPPLY CHAIN OFFICER, failed PCI attempt. 2.Moderate coronary artery disease, otherwise, and normal LVEDP. Plan: Staged PCI of the left circumflex at [place]. /HAMMAD Voice ID: [id number] Report ID: [id number]
[2023-03-03 18:16] VITALS: BP 105/74; O2SAT 99
== END 2023-03-03 18:16 | disposition home or self-care (01) ==
LOC: CCL 12:33
PROVIDERS: ATTEND Internal Medicine
DX: I25.10 Atherosclerotic heart disease of native coronary artery without angina pectoris (principal); I25.82 Chronic total occlusion of coronary artery; I10 Essential (primary) hypertension; E78.2 Mixed hyperlipidemia; E11.9 Type 2 diabetes mellitus without complications; Z95.5 Presence of coronary angioplasty implant and graft; Z87.891 Personal history of nicotine dependence; Z79.82 Long term (current) use of aspirin; Z79.84 Long term (current) use of oral hypoglycemic drugs; Z79.02 Long term (current) use of antithrombotics/antiplatelets; Z82.49 Family history of ischemic heart disease and other diseases of the circulatory system
CPT/HCPCS: 93005; 85025; 80048; 36415; 83721; 85610; 85347; 85730; 71046; 92920; 93458; 76937; C1893; Q9967; C1725; C1887; J1644; J2371; J2250; J3010; J7040 ×2; J0461